=== PATIENT | male | born 1930 | race Caucasian/White ===

== ENCOUNTER 2017-09-26 10:52 | Outpatient (CLI) | payer MEDICARE ==
[2017-09-26 11:11] LABS: BASOPHILS % (AUTO) 0.9 %; EOSINOPHILS # (AUTO) 0.6 10^3/uL (0.0-0.7); LYMPHOCYTES % (AUTO) 30.3 %; MEAN CORPUSCULAR HEMOGLOBIN 33.3 pg (27.0-31.0); MEAN CORPUSCULAR HGB CONC 34.6 g/dL (32.0-36.0); MEAN CORPUSCULAR VOLUME 96.2 fL (80.0-94.0); MEAN PLATELET VOLUME 7.9 fL (7.4-11.4); MONOCYTES # (AUTO) 0.3 10^3/uL (0.0-1.0); MONOCYTES % (AUTO) 7.8 %; NEUTROPHILS # (AUTO) 1.5 10^3/uL (1.5-6.6); PLT - PLATELET COUNT 91 10^3/uL (130-450); RED BLOOD COUNT 3.29 10^6/uL (4.70-6.10); RED CELL DISTRIBUTION WIDTH 15.3 % (12.0-15.0); WHITE BLOOD COUNT 3.5 x10^3/uL (4.8-10.8)
[2017-09-26 11:30] LABS: ALBUMIN 3.6 g/dL (3.2-5.5); ALBUMIN/GLOBULIN RATIO 1.3 (1.0-2.2); ALKALINE PHOSPHATASE 47 IU/L (42-121); ALT ALANINE AMINOTRANSFERASE 24 IU/L (10-60); AST ASPARTATE AMINOTRANSFERASE 29 IU/L (10-42); BILIRUBIN,TOTAL 0.7 mg/dL (0.2-1.0); BUN - BLOOD UREA NITROGEN 25 mg/dL (6-20); CALCIUM 8.5 mg/dL (8.5-10.3); CARBON DIOXIDE - CO2 23 mmol/L (21-32); CHLORIDE 111 mmol/L (101-111); CHOL/HDL RATIO 2.8 (<5.0); CHOLESTEROL 140 mg/dL; CREATININE 1.5 mg/dL (0.6-1.2); GFR - MDRD 44 (>89); GLUCOSE 89 mg/dL (70-100); HDL CHOLESTEROL 50 mg/dL; LDL CHOLESTEROL,CALCULATED 72 mg/dL; LDL/HDL RATIO 1.4 (<3.6); SODIUM 140 mmol/L (135-145); TOTAL PROTEIN 6.4 g/dL (6.7-8.2); VLDL CHOLESTEROL 18 mg/dL
== END 2017-09-26 10:53 | disposition home or self-care (01) ==
LOC: LAB 10:52
PROVIDERS: ATTEND Internal Medicine
DX: C74.90 Malignant neoplasm of unspecified part of unspecified adrenal gland (principal); E78.5 Hyperlipidemia, unspecified; E03.9 Hypothyroidism, unspecified
CPT/HCPCS: 36415; 80053; 80061; 83721; 84443; 85025

== ENCOUNTER 2017-10-25 08:11 | Outpatient (CLI) | payer MEDICARE ==
[2017-10-25] MEDS ORDERED: IOPAMIDOL-300 50 ML VIAL ONE (08:20)
[2017-10-25] MEDS ORDERED: IOPAMIDOL-300 100 ML VIAL ONE (08:20)
--- NOTE | 2017-10-25 11:02 | CT Report ---
Reason: CARCINOMA OF ADRENAL GLAND Procedure Date: 10/25/2017 Accession Number: [id number] / [id number] Procedure: CT - Chest W/ CPT Code: FULL RESULT: EXAM: CT CHEST EXAM DATE: 10/25/2017 09:34 AM. CLINICAL HISTORY: CARCINOMA OF ADRENAL GLAND. COMPARISONS: None. TECHNIQUE: Routine helical CT imaging was performed through the chest. IV contrast: 100 cc Isovue-300. Reconstructions: Coronal and sagittal. Coronal MIP. In accordance with CT protocol optimization, one or more of the following dose reduction techniques were utilized for this exam: automated exposure control, adjustment of mA and/or KV based on patient size, or use of iterative reconstructive technique. FINDINGS: Lungs/Pleura: There is a calcified granuloma of the right lower lobe. No other pulmonary nodules or masses. Pulmonary vasculature is normal. No pericardial or pleural effusion. No pneumothorax. Mediastinum: Right hilar lymph node measures 1.4 cm in short axis. There is a low attenuating center, possibly necrotic lymph node. There are also calcified lymph nodes of the right hilum. Hiatal hernia is noted. Bones: No bone lesions. Visualized Abdomen: Several low attenuating foci in the liver measure up to 2.7 cm. They measure between 10 and 20 HU, favoring cysts. There is a small gallstone versus a mural calcification. The left adrenal gland appears mostly absent, likely postsurgical. The right kidney appears absent. Left renal cyst is noted. There is a small amount of perihepatic ascites IMPRESSION: There is an atypical appearing, possibly necrotic right hilar lymph node. 1.4 cm in short axis. No pulmonary metastases. Perihepatic ascites. Hiatal hernia. RADIA
--- NOTE | 2017-10-25 11:16 | CT Report ---
Reason: CARCINOMA OF ADRENAL GLAND Procedure Date: 10/25/2017 Accession Number: [id number] / [id number] Procedure: CT - Abdomen/Pelvis W/ CPT Code: FULL RESULT: EXAM: CT ABDOMEN AND PELVIS EXAM DATE: 10/25/2017 09:34 AM. CLINICAL HISTORY: CARCINOMA OF ADRENAL GLAND. COMPARISONS: None. TECHNIQUE: Routine helical CT imaging was performed through the abdomen and pelvis. IV contrast: 100 cc Isovue-300. Enteric contrast: Yes. Reconstructions: Coronal and sagittal. In accordance with CT protocol optimization, one or more of the following dose reduction techniques were utilized for this exam: automated exposure control, adjustment of mA and/or KV based on patient size, or use of iterative reconstructive technique. FINDINGS: Lung Bases: Unremarkable. Liver: Multiple low attenuating foci in the liver measure up to 2.8 cm. They measure between 10 and 20 HU, favoring cysts. Gallbladder/Bile Ducts: There is a small gallstone versus a mural calcification. Spleen: Normal. Pancreas: There is fluid and/or edema about the tail of the pancreas series 3 images 20-24. It is difficult to exclude a mass. Adrenal Glands: The left adrenal gland appears mostly absent, which may be postsurgical. The right adrenal gland appears normal. The right kidney is absent. There is a 2.0 cm left renal cyst. Other low attenuating foci in the left kidney are too small to characterize. Peritoneal Cavity/Bowel: There is a small amount of free fluid in the pelvis. There are colon diverticula without evidence of diverticulitis. Pelvic Organs: The prostate appears absent. Vasculature: No aneurysms or other significant abnormality. Bones: No bone lesions. There is pubic skin thickening, of uncertain significance. IMPRESSION: There is fluid and/or edema about the tail of the pancreas. There is also abdominal and pelvic ascites. Correlate clinically for pancreatitis. It is difficult to exclude a mass. Follow-up is recommended. Absent right kidney. Mostly absent left adrenal gland. There is pubic skin thickening of uncertain etiology or significance. Correlate clinically for a possible infectious process. RADIA
[2017-10-25] MEDS ORDERED: IOPAMIDOL-300 100 ML VIAL IVP ONE (13:01)
[2017-10-25] MEDS ORDERED: IOPAMIDOL-300 50 ML VIAL PO ONE (13:01)
== END 2017-10-25 08:12 | disposition home or self-care (01) ==
LOC: DI 08:11
PROVIDERS: ATTEND Internal Medicine
DX: C74.90 Malignant neoplasm of unspecified part of unspecified adrenal gland (principal); R18.8 Other ascites; Z90.5 Acquired absence of kidney; R23.4 Changes in skin texture
CPT/HCPCS: 71260; 74177; 93005; Q9967

== ENCOUNTER 2017-12-20 11:37 | Outpatient (CLI) | payer MEDICARE ==
[2017-12-20 17:22] LABS: HGB - HEMOGLOBIN 10.5 g/dL (14.0-18.0); MEAN CORPUSCULAR HEMOGLOBIN 33.3 pg (27.0-31.0); MEAN CORPUSCULAR HGB CONC 33.2 g/dL (32.0-36.0); MEAN CORPUSCULAR VOLUME 100.5 fL (80.0-94.0); MEAN PLATELET VOLUME 9.3 fL (7.4-11.4); RED BLOOD COUNT 3.15 10^6/uL (4.70-6.10); RED CELL DISTRIBUTION WIDTH 15.5 % (12.0-15.0); WHITE BLOOD COUNT 3.1 x10^3/uL (4.8-10.8)
== END 2017-12-20 11:38 | disposition home or self-care (01) ==
LOC: LAB.F 11:37
PROVIDERS: ATTEND Internal Medicine
DX: E03.9 Hypothyroidism, unspecified (principal)
CPT/HCPCS: 36415; 84443; 85027

== ENCOUNTER 2018-02-18 05:40 | Outpatient (CLI) | payer MEDICARE | END 2018-02-18 05:41 | disposition critical access hospital (66) | LOC: EMS 05:40 | PROVIDERS: ATTEND Surgery | DX: K92.0 Hematemesis (principal) | CPT/HCPCS: A0425; A0427 ==

== ENCOUNTER 2018-02-18 05:44 | Inpatient (IN) | payer MEDICARE ==
[2018-02-18] MEDS ORDERED: SODIUM CHLORIDE 0.9% 1,000 ML IV ONE ×2 (05:52)
[2018-02-18] MEDS ORDERED: PANTOPRAZOLE 40 MG VIAL IVP STA (05:52)
[2018-02-18] MEDS ORDERED: ONDANSETRON 4 MG/2 ML VIAL IVP STA (05:52)
--- NOTE | 2018-02-18 06:02 | ED Physician Documentation ---
PD HPI GI BLEED - Stated complaint Stated Complaint: GI BLEED - Chief complaint Chief Complaint: Abd Pain - History obtained from History obtained from: Patient, EMS - History of Present Illness Timing - onset: Last night Timing - duration: Days (1) Timing - details: Abrupt onset Pain level max: 0 Pain level now: 0 Associated symptoms: Coffee ground emesis, Hematemesis, Black/tarry stool, Diarrhea Contributing factors: No: Sick contact, Bad food, Travel, Recent antibiotics, Alcohol use, Aspirin use, NSAID use, Stress, Anticoagulated, Diabetes Improved by: Other (nothing) Worsened by: Other (nothing) Similar symptoms before: Diagnosis (gastric ulcer) Recently seen: Not recently seen - Additional information Additional information: 87-year-old gentleman presents to the emergency department with vomiting last night that was "like coffee grounds". He states that he has continued to vomit throughout the night and has now had diarrhea that is dark. The vomit now has bright red blood in it. No history of varices. Does have a history of gastric ulcers in the past, but states his last was approximately 15 years ago and was not bleeding at that time. States has had normal colonoscopies in the past. No recent alcohol use. No recent antibiotics. Patient states he ate a taco salad last night Review of Systems Ten Systems: 10 systems reviewed and negative Constitutional: denies: Fever, Chills Respiratory: denies: Cough GI: denies: Abdominal Pain Skin: denies: Rash Musculoskeletal: denies: Neck pain, Back pain Neurologic: denies: Headache PD PAST MEDICAL HISTORY - Past Medical History Cardiovascular: Coronary artery disease, Other Respiratory: Other Neuro: None Endocrine/Autoimmune: None GI: Other : Other HEENT: Other Psych: Other Musculoskeletal: Other Derm: None - Present Medications Home Medications: Ambulatory Orders Medication Instructions Recorded Confirmed Aspirin 1 tab ORAL DAILY 10/17/17 01/09/18 Levothyroxine [Synthroid] 100 mcg ORAL DAILY 10/17/17 01/09/18 Lovastatin 10 mg ORAL DAILY 10/17/17 01/09/18 Pazopanib HCl [Votrient] 0.5 tab ORAL DAILY 10/17/17 01/09/18 amLODIPine [Norvasc] 10 mg ORAL DAILY 10/17/17 01/09/18 hydrALAZINE [Apresoline] 25 mg ORAL DAILY 10/17/17 01/09/18 - Allergies Allergies/Adverse Reactions: Allergies Allergy/AdvReac Type Severity Reaction Status Date / Time No Known Drug Allergies Allergy Verified 10/17/17 09:13 PD ED PE NORMAL - Vitals Vital signs reviewed: Yes - General General: Alert and oriented X 3, No acute distress - HEENT HEENT: Moist mucous membranes - Neck Neck: Supple, no meningeal sign - Cardiac Cardiac: RRR, Strong equal pulses - Respiratory Respiratory: No respiratory distress, Clear bilaterally - Abdomen Abdomen: Soft, Non tender, Non distended - Rectal Rectal: Other (dark stool, + hemoccult) - Derm Derm: Warm and dry, No rash - Extremities Extremities: No edema, No calf tenderness / cord - Neuro Neuro: Alert and oriented X 3 - Psych Psych: Normal mood, Normal affect Results - Vitals Vitals: Vital Signs - 24 hr 02/18/18 02/18/18 05:49 06:15 Temperature 36 C L Heart Rate 67 65 Respiratory 18 16 Rate Blood Pressure 125/99 H 148/70 H O2 Saturation 99 96 Oxygen O2 Source Room air - Labs Labs: Laboratory Tests 02/18/18 02/18/18 02/18/18 06:03 06:03 06:03 WBC 6.3 RBC 2.42 L Hgb 8.2 L Hct 25.0 L MCV 103.3 H MCH 34.0 H MCHC 32.9 RDW 15.4 H Plt Count 110 L MPV 9.3 Neut # (Auto) 3.9 Lymph # (Auto) 1.5 [place] # (Auto) 0.4 Eos # (Auto) 0.5 Baso # (Auto) 0.0 Absolute Nucleated RBC 0.00 Nucleated RBC % 0.0 PT 11.7 INR 1.0 APTT 28.9 Sodium 140 Potassium 4.8 Chloride 112 H Carbon Dioxide 20 L Anion Gap 8.0 BUN 47 H Creatinine 1.9 H Estimated GFR (MDRD) 34 L Glucose 132 H Calcium 8.5 Total Bilirubin 0.5 AST 41 ALT 43 Alkaline Phosphatase 41 L Total Protein 5.4 L Albumin 2.8 L Globulin 2.6 Albumin/Globulin Ratio 1.1 Lipase 33 PD MEDICAL DECISION MAKING - ED course Complexity details: reviewed results, re-evaluated patient, considered differential, d/w patient, d/w decorator consultant ED course: 87-year-old male who presents to the emergency department with coffee-ground emesis last night that is turned into dark stools with diarrhea this morning. His hemoglobin is dropped from 10 down to 8. Vital signs are stable. Given IV fluids, Protonix and Zofran. Discussed the case with Dr. Mcgowan, general surgery on-call who will consult this morning. Also discussed with Dr. Roa, hospitalist who accepts. This document was made in part using voice recognition software. While efforts are made to proofread this document, sound alike and grammatical errors may occur. Departure - Departure Disposition: [facility] DC/Xfer Clinical Impression: Upper GI bleed Anemia Qualifiers: Anemia type: unspecified type Qualified Code(s): D64.9 - Anemia, unspecified Condition: Stable
[2018-02-18 06:16] LABS: BASOPHILS % (AUTO) 0.6 %; EOSINOPHILS # (AUTO) 0.5 10^3/uL (0.0-0.7); EOSINOPHILS % (AUTO) 7.6 %; HGB - HEMOGLOBIN 8.2 g/dL (14.0-18.0); LYMPHOCYTES # (AUTO) 1.5 10^3/uL (1.5-3.5); LYMPHOCYTES % (AUTO) 23.3 %; MEAN CORPUSCULAR HGB CONC 32.9 g/dL (32.0-36.0); MEAN CORPUSCULAR VOLUME 103.3 fL (80.0-94.0); MEAN PLATELET VOLUME 9.3 fL (7.4-11.4); MONOCYTES # (AUTO) 0.4 10^3/uL (0.0-1.0); MONOCYTES % (AUTO) 6.5 %; NEUTROPHILS # (AUTO) 3.9 10^3/uL (1.5-6.6); PLT - PLATELET COUNT 110 10^3/uL (130-450); RED BLOOD COUNT 2.42 10^6/uL (4.70-6.10); RED CELL DISTRIBUTION WIDTH 15.4 % (12.0-15.0); WHITE BLOOD COUNT 6.3 x10^3/uL (4.8-10.8)
[2018-02-18 06:22] LABS: PT - PROTHROMBIN TIME 11.7 secs (9.9-12.6)
[2018-02-18 06:26] LABS: ALBUMIN 2.8 g/dL (3.2-5.5); ALBUMIN/GLOBULIN RATIO 1.1 (1.0-2.2); BILIRUBIN,TOTAL 0.5 mg/dL (0.2-1.0); CALCIUM 8.5 mg/dL (8.5-10.3); CREATININE 1.9 mg/dL (0.6-1.2); TOTAL PROTEIN 5.4 g/dL (6.7-8.2)
[2018-02-18] MEDS ORDERED: hydrALAZINE INJ 20 MG/ML VIAL IVP PRN (06:38)
[2018-02-18] MEDS ORDERED: PROCHLORPERAZINE INJ 10 MG in SODIUM CHLORIDE 0.9% 50 ML IV PRN (06:38)
[2018-02-18] MEDS ORDERED: ONDANSETRON 4 MG/2 ML VIAL IVP PRN (06:39)
--- NOTE | 2018-02-18 06:49 | HISTORY & PHYSICAL EXAMINATION ---
Chief Complaint - Chief Complaint Chief Complaint: coffee-ground emesis History of Present Illness - Admitted From Admitted From:: ED - History Obtained From Records Reviewed: yes History obtained from: patient Exam Limitations: none - History of Present Illness HPI Comment/Other: 87-year-old gentleman presents to the emergency department with vomiting last night that was "like coffee grounds". He states that he has continued to vomit throughout the night and has now had diarrhea that is dark. The vomit now has bright red blood in it. No history of varices. NO ETOH abuse however does take oral chemotx (pazopanib) for his stage 4 renal cell carcinoma who he sees Yessenia Patterson primary Hem/onc, with last note on 11/02/17 by PROGRESSIVE ASSEMBLER AND FITTER stating due to his intolerance to VOTRIENT he may need to start nivolumab infusions every 2 weeks. Does have a history of gastric ulcers in the past with and upper endoscopy about 4-5 years ago, but states his last colonoscopy was approximately 15 years ago and was not bleeding at that time. No recent alcohol use. No recent antibiotics. Patient states he ate a taco salad last night. On exam patient had no overt abd pain, H/H showed a drop from previous 10 to a 8.2 g/dl today, cr 1.9 with a baseline cr at 1.5 on [employer], mild metabolic acidosis with a co2 20, and a thrombocytopenia plt 110. General surgery has been consulted for possible endoscopy and was started on high dose IV PPI. History - Past Medical History Cardiovascular: reports: Coronary artery disease, Other Respiratory: reports: Other Neuro: reports: None Endocrine/Autoimmune: reports: None GI: reports: Other : reports: Other HEENT: reports: Other Psych: reports: Other Musculoskeletal: reports: Other Derm: reports: None MRSA Hx?: No Meds/Allgy - Home Medications Home Medications: Ambulatory Orders Medication Instructions Recorded Confirmed Aspirin 1 tab ORAL DAILY 10/17/17 01/09/18 Levothyroxine [Synthroid] 100 mcg ORAL DAILY 10/17/17 01/09/18 Lovastatin 10 mg ORAL DAILY 10/17/17 01/09/18 Pazopanib HCl [Votrient] 1 tab ORAL DAILY 10/17/17 02/18/18 amLODIPine [Norvasc] 10 mg ORAL DAILY 10/17/17 01/09/18 hydrALAZINE [Apresoline] 25 mg ORAL DAILY 10/17/17 01/09/18 - Allergies Allergies/Adverse Reactions: Allergies Allergy/AdvReac Type Severity Reaction Status Date / Time No Known Drug Allergies Allergy Verified 10/17/17 09:13 Review of Systems - Constitutional Constitutional: reports: Weakness - Ears, Nose & Throat Ears, Nose & Throat: denies: Nosebleeds - Cardiovascular Cariovascular: denies: Irregular heart rate, Palpitations, Chest pain - Respiratory Respiratory: denies: Cough, Sputum production, Wheezing, Hemoptysis - Gastrointestinal Gastrointestinal: reports: Diarrhea, Change in bowel habits, Bloody stools, Nausea, Vomiting, Bruce blood emesis, Coffee grounds emesis, Poor appetite. denies: Abdominal pain, Abdominal distention, Constipation, Reflux/heartburn - Genitourinary Genitourinary: denies: Dysuria, Frequency, Urgency, Hematuria - Musculoskeletal Musculoskeletal: denies: Muscle pain, Back pain, Muscle aches, Stiffness - Integumentary Integumentary: denies: Rash - Neurological Neurological: denies: Dizziness, Numbness, Abnormal gait, Seizures, Slurred speech - Psychiatric Psychiatric: denies: Depression, Anxiety, Hallucinations - Endocrine Endocrine: denies: Polyuria, Polydypsia - Hematologic/Lymphatic Hematologic/Lymphatic: reports: Anemia Prior Level of Functionality: independent and ambulatory Exam - Vital Signs Vital Signs: Vital Signs x48h Temp Pulse Resp BP Pulse Ox 02/18/18 06:15 65 16 148/70 H 96 02/18/18 05:49 36 C L 67 18 125/99 H 99 VSS, afebrile BP 148/70 - Physical Exam General Appearance: positive: No acute distress Eyes Bilateral: positive: Normal inspection, PERRL, EOMI, No scleral icterus ENT: positive: Pharynx nml Neck: positive: Nml inspection, Thyroid nml, No JVD, Trachea midline. negative: Thyromegaly, Carotid bruit Respiratory: positive: Chest non-tender, No respiratory distress, Breath sounds nml Cardiovascular: positive: Regular rate & rhythm, No murmur, No gallop, Irregularly irregular Peripheral Pulses: positive: 2+ Abdomen: positive: No organomegaly, Nml bowel sounds, No distention, Tenderness (Epigastric tenderness). negative: Hepatomegaly, Splenomegaly Back: positive: Nml inspection Extremities: positive: Non-tender, Full ROM, Nml appearance, Pedal edema Neurologic/Psychiatric: positive: Oriented x3, CN's nml (2-12) Conclusion/Plan - Problem List (1) Acute blood loss anemia Conclusion/Plan: Will type and CM 2 units and transfuse with threshold<8 g/dl due to hx CAD. General surgery consulted with Dr. Mcgowan for possible endoscopy. IV protonix, bowel rest, IVF's, NPO for now. FOBT, Iron studies to follow. (2) Thrombocytopenia Conclusion/Plan: Bone marrow suppression from oral chemotx, will hold for now once H/H stabilizes and symptoms resolve. Obtain coag panel. (3) Hx of gastric ulcer Conclusion/Plan: Upper endoscopy approx 4-5 years ago show a gastric ulcer, will place on IV PPI, NPO, Gen surgery for upper endoscopy. 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 Qualifiers: Laterality: right Qualified Code(s): C64.1 - Malignant neoplasm of right kidney, except renal pelvis - Lab Results Lab results reviewed: Yes Fish Bones: 02/18/18 06:03 02/18/18 06:03 Core Measures - Anticipated LOS I expect patient to be DC'd or transferred within 96 hours.: No - DVT/VTE - Prophylaxis VTE/DVT Device ordered at admit?: Yes VTE/DVT Prophylaxis med ordered at admit?: No Not Ordered - Medical Reason: Contraindicated (GIB)
[2018-02-18] MEDS ORDERED: PANTOPRAZOLE 40 MG VIAL IVP SCH (07:00)
[2018-02-18] MEDS ORDERED: DEXTROSE 5%-0.9% NACL 1,000 ML IV SCH (07:00)
[2018-02-18 07:11] LABS: % IRON SATURATION 38 % (20-50); IRON 89 ug/dL (45-182); TOTAL IRON BINDING CAPACITY 234 ug/dL (250-450); TRANSFERRIN 167 mg/dL (180-329)
[2018-02-18] MEDS ORDERED: PROCHLORPERAZINE 10 MG/2 ML VIAL IVP PRN (07:43)
[2018-02-18] MEDS: SODIUM CHLORIDE FLUSH 0.9% 10 ML SYRINGE IVP SCH ×3 (08:30→23:38)
--- NOTE | 2018-02-18 09:32 | CONSULTATION NOTE ---
Referring Provider Name of Referring Provider:: Dr. Roa Consult Date: 02/18/18 Chief Complaint - Chief Complaint Chief Complaint: GI bleed History of Present Illness - Admitted From Admitted From:: ER - History Obtained From Records Reviewed: yes History obtained from: pt, records Exam Limitations: none - History of Present Illness HPI Comment/Other: 87 yo male with abrupt onset at 0200 today of repeated N/V of coffeeground emesis and loose, melenic stools, prompting ER evaluation this am and admission. He noted a dark stool yesterday but ow his bowel function has been nl. He denies abdominal pain, fever, chills, syncope, dizziness, hematochezia, previous similar episodes. He has a remote hx of PUD diagnosed in the with EGD during evaluation of epigastric pain. He had been taking NSAIDs at that time. His current NSAID use is 81 mg aspirin daily; no alcohol or tobacco. For the past year or so he has been taking pazopanib for Stage 4 renal cell ca, which has been associated with anorexia and a 30# wt loss per patient. He is s/p right radical nephrectomy, and subsequent right adrenalectomy for metastatic disease. He has known pulmonary mets and has been followed by the [facility] clinic since he moved to [facility] last summer. He reports hx multiple colonoscopies, and a hx of colon polyps, with most recent colonoscopy being approx 7 yrs ago and favorable per pt. Since admission and treatment with IV PPI therapy he has had no further N/V or bms. 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) Neuro: reports: None Endocrine/Autoimmune: reports: None GI: reports: Ulcers ( assoc with NSAIDs), Hiatal hernia, Colon polyps : reports: Renal insuffiency (s/p nephrectomy), Other (prostate cancer, s/p prostatectomy) Musculoskeletal: reports: Osteoarthritis Derm: reports: None MRSA Hx?: No - Past Surgical History General: reports: Appendectomy, Colonoscopy, EGD, Other (BIH repairs) Ortho: reports: Spine surgery, Other (right shoulder surgery) /ENVIRONMENTAL CONSULTANT: reports: Other (prostatectomy, vasectomy, right nephrectomy, left adrenalectomy) - Family & Social History Living arrangement: At home - Substance History Use: Uses substance without health or social issues: NONE Meds/Allgy - Home Medications Home Medications: Ambulatory Orders Medication Instructions Recorded Confirmed Aspirin 1 tab ORAL DAILY 10/17/17 01/09/18 Levothyroxine [Synthroid] 100 mcg ORAL DAILY 10/17/17 01/09/18 Lovastatin 10 mg ORAL DAILY 10/17/17 01/09/18 Pazopanib HCl [Votrient] 1 tab ORAL DAILY 10/17/17 02/18/18 amLODIPine [Norvasc] 10 mg ORAL DAILY 10/17/17 01/09/18 hydrALAZINE [Apresoline] 25 mg ORAL DAILY 10/17/17 01/09/18 - Allergies Allergies/Adverse Reactions: Allergies Allergy/AdvReac Type Severity Reaction Status Date / Time No Known Drug Allergies Allergy Verified 10/17/17 09:13 Review of Systems - Constitutional Constitutional: reports: Poor appetite, Weight loss. denies: Fever, Chills - Cardiovascular Cariovascular: denies: Irregular heart rate, Palpitations, Chest pain, Lightheadedness, Syncope - Respiratory Respiratory: denies: Cough, Sputum production, Wheezing - Gastrointestinal Gastrointestinal: reports: Diarrhea, Change in bowel habits, Black stools, Nausea, Vomiting, Coffee grounds emesis, Poor appetite. denies: Abdominal pain, Abdominal distention, Constipation, Reflux/heartburn - Hematologic/Lymphatic Hematologic/Lymphatic: denies: Bruising, Blood clots, Bleeding tendencies - All Other Systems All Other Systems: reports: Reviewed and negative Exam - Vital Signs Reviewed Vital Signs: Yes Vital Signs: Vital Signs x48h Temp Pulse Pulse Resp BP BP Pulse Ox 02/18/18 08:46 36.7 C 73 16 95 02/18/18 08:20 36.7 C 73 16 108/60 95 02/18/18 07:04 71 18 145/56 H 98 02/18/18 06:58 73 18 146/67 H 96 02/18/18 06:15 65 16 148/70 H 96 02/18/18 05:49 36 C L 67 18 125/99 H 99 - Physical Exam General Appearance: positive: No acute distress, Alert Eyes Bilateral: positive: Conjunctivae nml, No scleral icterus ENT: positive: ENT inspection nml, Pharynx nml, No signs of dehydration Neck: positive: Nml inspection, No JVD. negative: Thyromegaly, Lymphadenopathy (R), Lymphadenopathy (L) Respiratory: positive: Chest non-tender, No respiratory distress, Breath sounds nml. negative: Wheezes, Rales Cardiovascular: positive: Regular rate & rhythm, No murmur, No gallop Abdomen: positive: Non-tender, No organomegaly, Nml bowel sounds, No distention. negative: Hepatomegaly, Splenomegaly, Mass Skin: positive: Color nml, Warm, Dry. negative: Cyanosis Extremities: positive: Non-tender. negative: Calf tenderness Neurologic/Psychiatric: positive: Oriented x3 Conclusion/Plan - Diagnosis Diagnosis: UGI bleed in 87 yo male on chronic low dose NSAID therapy and ongoing chemotherapy for Stage 4 renal cell ca. DDX includes PUD, gastritis, H. pylori, atypical GERD, UGI neoplasm (primary or metastatic), varices (doubt). Currently hemodynamically stable with no signs of ongoing active bleeding. - Plan Plan: Agree with present management of NPO, IVF, PPI therapy, holding NSAIDS and chemotherapy. I advised him to undergo EGD with possible biopsy or therapy later today. PAR conference was held and consent obtained. Thanks, - Lab Results Lab results reviewed: Yes Fish Bones: 02/18/18 06:03 02/18/18 06:03
--- NOTE | 2018-02-18 10:02 | ANESTHESIA ---
Pre-Anesthesia VS, & Labs - Diagnosis GI bleed - Procedure EGD Vital Signs: Temp Pulse Resp BP Pulse Ox 36.7 C 73 16 108/60 95 02/18/18 08:46 02/18/18 08:46 02/18/18 08:46 02/18/18 08:20 02/18/18 08:46 Height 5 ft 11 in Weight (kg) 80.5 kg Body Mass Index 24.7 - NPO >8 hours - Lab Results Current Lab Results: Laboratory Tests 02/18/18 06:03: Iron 89, TIBC 234 L, % Saturation 38, Transferrin 167 L 02/18/18 06:03: Blood Type O POSITIVE, Antibody Screen NEGATIVE 02/18/18 06:03: Sodium 140, Potassium 4.8, Chloride 112 H, Carbon Dioxide 20 L, Anion Gap 8.0, BUN 47 H, Creatinine 1.9 H, Estimated GFR (MDRD) 34 L, Glucose 132 H, Calcium 8.5, Total Bilirubin 0.5, AST 41, ALT 43, Alkaline Phosphatase 41 L, Total Protein 5.4 L, Albumin 2.8 L, Globulin 2.6, Albumin/Globulin Ratio 1.1, Lipase 33 02/18/18 06:03: PT 11.7, INR 1.0, APTT 28.9 02/18/18 06:03: WBC 6.3, RBC 2.42 L, Hgb 8.2 L, Hct 25.0 L, MCV 103.3 H, MCH 34.0 H, MCHC 32.9, RDW 15.4 H, Plt Count 110 L, MPV 9.3, Neut # (Auto) 3.9, Lymph # (Auto) 1.5, [place] # (Auto) 0.4, Eos # (Auto) 0.5, Baso # (Auto) 0.0, Absolute Nucleated RBC 0.00, Nucleated RBC % 0.0 Fish Bones: 02/18/18 13:33 02/18/18 06:03 Home Medications and Allergies Active Medications Hydralazine HCl (Apresoline Inj) 10 mg IVP Q4HR PRN PRN Reason: SBP>160 Sodium Chloride (Normal Saline 0.9%) 1,000 mls @ 150 mls/hr IV .[id number] ONE Stop: 02/18/18 12:31 Last Admin: 02/18/18 07:18 Dose: 150 mls/hr Dextrose/Sodium Chloride (D5ns) 1,000 mls @ 125 mls/hr IV .Q8H [facility] Last Admin: 02/18/18 08:29 Dose: 125 mls/hr Ondansetron HCl (Zofran Inj) 4 mg IVP Q4HR PRN PRN Reason: Nausea / Vomiting Pantoprazole Sodium (Protonix) 40 mg IVP BIDAC [facility] Polyethylene Glycol (Miralax) 17 gm PO DAILY [facility] Prochlorperazine Edisylate (Compazine Inj) 10 mg IVP Q4HR PRN PRN Reason: Nausea / Vomiting Sodium Chloride (Normal Saline Flush 0.9%) 10 ml IVP PRN PRN PRN Reason: NEEDED PER PROVIDER ORDERS Sodium Chloride (Normal Saline Flush 0.9%) 10 ml IVP 0100,0900,1700 [facility] Last Admin: 02/18/18 08:30 Dose: 10 ml Aspirin 1 tab ORAL DAILY 10/17/17 Levothyroxine [Synthroid] 100 mcg ORAL DAILY 10/17/17 Lovastatin 10 mg ORAL DAILY 10/17/17 Pazopanib HCl [Votrient] 1 tab ORAL DAILY 10/17/17 amLODIPine [Norvasc] 10 mg ORAL DAILY 10/17/17 hydrALAZINE [Apresoline] 25 mg ORAL DAILY 10/17/17 Allergies/Adverse Reactions: Allergies Allergy/AdvReac Type Severity Reaction Status Date / Time No Known Drug Allergies Allergy Verified 10/17/17 09:13 Anes History & Medical History - Anesthetic History Anesthesia Complications: reports: No previous complications Family history of Anesthesia Complications: Denies Family history of Malignant Hyperthermia: Denies - Medical History Cardiovascular: reports: Coronary artery disease, Other Pulmonary: reports: None (Right nephrectomy for cancer), Other Gastrointestinal: reports: Ulcers (1980s assoc with NSAIDs), Hiatal hernia, Colon polyps Urinary: reports: Renal insuffiency (s/p nephrectomy), Other (prostate cancer) Neuro: reports: None Musculoskeletal: reports: Other Endocrine/Autoimmune: reports: None Blood Disorders: reports: Anemia Skin: reports: None Smoking Status: Former smoker Psychosocial: reports: No issues indicated - Surgical History General: Appendectomy, Colonoscopy, EGD, Other (BIH repairs) Urologic: Prostatic surgery Gynecologic: Other (TURP, vasectomy) Orthopedic: Spine surgery, Other (right shoulder surgery) Exam General: Alert, Oriented x3 Dental: Dentures full Upper, Dentures full Lower Mouth Opening: Greater than 4 Fingerbreadths Neck Mobility: Normal Mallampati classification: I Thyromental Distance: greater than 6 cm Respiratory: Lungs clear Cardiovascular: Regular rate Neurological: Normal speech Mental/Cognitive Status: Alert/Oriented X3 Cognitive Status: Within normal limits Plan Anesthesia Type: MAC Consent for Procedure(s) Verified and Reviewed: Yes Code Status: Attempt Resuscitation ASA classification: 3-Severe systemic disease Is this case an emergency?: Yes (Check hemoglobin/hematocrit)
[2018-02-18] MEDS: POLYETHYLENE GLYCOL 3350 17 GM PACKET PO SCH (11:28)
[2018-02-18 13:44] LABS: BASOPHILS % (AUTO) 0.3 %; EOSINOPHILS # (AUTO) 0.1 10^3/uL (0.0-0.7); EOSINOPHILS % (AUTO) 2.2 %; LYMPHOCYTES # (AUTO) 0.6 10^3/uL (1.5-3.5); MEAN CORPUSCULAR HEMOGLOBIN 33.4 pg (27.0-31.0); MEAN CORPUSCULAR HGB CONC 33.5 g/dL (32.0-36.0); MEAN CORPUSCULAR VOLUME 99.9 fL (80.0-94.0); MEAN PLATELET VOLUME 8.9 fL (7.4-11.4); MONOCYTES # (AUTO) 0.4 10^3/uL (0.0-1.0); MONOCYTES % (AUTO) 9.4 %; NEUTROPHILS # (AUTO) 2.7 10^3/uL (1.5-6.6); NEUTROPHILS % (AUTO) 72.1 %; PLT - PLATELET COUNT 82 10^3/uL (130-450); RED BLOOD COUNT 2.01 10^6/uL (4.70-6.10); RED CELL DISTRIBUTION WIDTH 15.3 % (12.0-15.0); WHITE BLOOD COUNT 3.8 x10^3/uL (4.8-10.8)
[2018-02-18 13:48] LABS: HGB - HEMOGLOBIN 6.7 g/dL (14.0-18.0)
[2018-02-18] MEDS ORDERED: LIDO GARGLE 30 ML BOTTLE ONE (14:06)
[2018-02-18] MEDS ORDERED: LACTATED RINGERS 1,000 ML IV ONE ×2 (15:19→15:29)
[2018-02-18] MEDS ORDERED: LIDO GARGLE 30 ML BOTTLE PO ONE (15:28)
[2018-02-18] MEDS ORDERED: LIDOCAINE-MPF 2% 5 ML VIAL IM ONE (15:40)
[2018-02-18] MEDS ORDERED: PROPOFOL 200 MG/20 ML VIAL IVP ONE (15:40)
[2018-02-18] MEDS ORDERED: SODIUM CHLORIDE 0.9% 500 ML IV ONE (16:42)
[2018-02-18] MEDS: SODIUM CHLORIDE FLUSH 0.9% 10 ML SYRINGE IVP PRN (17:10)
[2018-02-18] MEDS: PANTOPRAZOLE 40 MG VIAL IVP SCH (17:12)
--- NOTE | 2018-02-18 19:03 | PROVIDER PROGRESS NOTE ---
Subjective - Prog Note Date Prog Note Date: 02/18/18 Prog Note Time: 19:03 - Subjective Pt reports feeling: Improved Current Medications - Current Medications Current Medications: Active Medications Hydralazine HCl (Apresoline Inj) 10 mg IVP Q4HR PRN PRN Reason: SBP>160 Levothyroxine Sodium (Synthroid) 100 mcg PO QDAC [facility] Ondansetron HCl (Zofran Inj) 4 mg IVP Q4HR PRN PRN Reason: Nausea / Vomiting Pantoprazole Sodium (Protonix) 40 mg IVP BIDAC [facility] Last Admin: 02/18/18 17:12 Dose: 40 mg Polyethylene Glycol (Miralax) 17 gm PO DAILY [facility] Last Admin: 02/18/18 11:28 Dose: Not Given Prochlorperazine Edisylate (Compazine Inj) 10 mg IVP Q4HR PRN PRN Reason: Nausea / Vomiting Sodium Chloride (Normal Saline Flush 0.9%) 10 ml IVP PRN PRN PRN Reason: NEEDED PER PROVIDER ORDERS Last Admin: 02/18/18 17:10 Dose: 10 ml Sodium Chloride (Normal Saline Flush 0.9%) 10 ml IVP 0100,0900,1700 [facility] Last Admin: 02/18/18 17:10 Dose: 10 ml Aspirin 81 mg ORAL DAILY 10/17/17 Levothyroxine [Synthroid] 100 mcg PO QDAC 10/17/17 Lovastatin 10 mg PO DAILY 10/17/17 Pazopanib HCl [Votrient] 200 mg PO DAILY 10/17/17 amLODIPine [Norvasc] 10 mg PO DAILY 10/17/17 hydrALAZINE [Apresoline] 25 mg PO DAILY 10/17/17 Objective - Vital Signs/Intake & Output Reviewed Vital Signs: Yes Vital Signs: Vital Signs x48h Temp Pulse Pulse Resp BP BP Pulse Ox 02/18/18 17:30 36.7 C 51 L 16 129/48 L 02/18/18 17:02 36.5 C 51 L 16 134/50 H 02/18/18 16:49 36.6 C 46 L 16 127/45 L 02/18/18 16:25 36.9 C 48 L 16 125/47 L 100 02/18/18 16:13 37.1 C 50 L 16 127/52 L 100 02/18/18 16:08 37.1 C 69 16 115/48 L 100 02/18/18 16:00 37.1 C 55 L 16 125/52 L 100 02/18/18 15:55 37.4 C 54 L 16 109/51 L 100 02/18/18 15:50 37.4 C 51 L 17 107/49 L 98 02/18/18 15:06 36.8 C 56 L 16 134/52 H 02/18/18 14:53 36.9 C 68 16 141/63 H Intake & Output: Intake & Output 02/15/18 02/16/18 02/17/18 02/18/18 23:59 23:59 23:59 23:59 Intake Total 2750 Balance 2750 - Objective General Appearance: positive: No acute distress, Alert, Other (Anxious gentleman with a very nervous affect) Eyes Bilateral: positive: PERRL, EOMI ENT: positive: Pharynx nml Neck: positive: No JVD. negative: Stiff neck Respiratory: positive: Chest non-tender. negative: Wheezes, Rales, Rhonchi Cardiovascular: positive: Regular rate & rhythm. negative: Gallop/S4, Friction rub Abdomen: positive: Non-tender, No organomegaly, Nml bowel sounds, No distention Skin: positive: Warm, Dry Extremities: positive: Non-tender, No pedal edema Neurologic/Psychiatric: positive: Oriented x3, CN's nml (2-12), Motor nml - Lab Results Fish Bones: 02/18/18 13:33 02/18/18 06:03 Other Labs: Lab Results x24hrs 02/18/18 02/18/18 02/18/18 Range/Units 13:33 13:33 06:03 WBC 3.8 L (4.8-10.8) x10^3/uL RBC 2.01 L (4.70-6.10) 10^6/uL Hgb 6.7 L* (14.0-18.0) g/dL Hct 20.1 L (42.0-52.0) % MCV 99.9 H (80.0-94.0) fL MCH 33.4 H (27.0-31.0) pg MCHC 33.5 (32.0-36.0) g/dL RDW 15.3 H (12.0-15.0) % Plt Count 82 L (130-450) 10^3/uL MPV 8.9 (7.4-11.4) fL Neut # (Auto) 2.7 (1.5-6.6) 10^3/uL Lymph # (Auto) 0.6 L (1.5-3.5) 10^3/uL Iron # (Auto) 0.4 (0.0-1.0) 10^3/uL Eos # (Auto) 0.1 (0.0-0.7) 10^3/uL Baso # (Auto) 0.0 (0.0-0.1) 10^3/uL Absolute Nucleated RBC 0.00 x10^3/uL Nucleated RBC % 0.0 /100WBC PT (9.9-12.6) secs INR (0.8-1.2) APTT (24.9-33.3) secs Sodium (135-145) mmol/L Potassium (3.5-5.0) mmol/L Chloride (101-111) mmol/L Carbon Dioxide (21-32) mmol/L Anion Gap (6-13) BUN (6-20) mg/dL Creatinine (0.6-1.2) mg/dL Estimated GFR (MDRD) (>89) Glucose (70-100) mg/dL Calcium (8.5-10.3) mg/dL Iron (45-182) ug/dL TIBC (250-450) ug/dL % Saturation (20-50) % Transferrin (180-329) mg/dL Total Bilirubin (0.2-1.0) mg/dL AST (10-42) IU/L ALT (10-60) IU/L Alkaline Phosphatase (42-121) IU/L Total Protein (6.7-8.2) g/dL Albumin (3.2-5.5) g/dL Globulin (2.1-4.2) g/dL Albumin/Globulin Ratio (1.0-2.2) Lipase (22-51) U/L Blood Type Cancelled Blood Type Recheck O POSITIVE Antibody Screen Cancelled Crossmatch IS Only See Detail 02/18/18 02/18/18 02/18/18 Range/Units 06:03 06:03 06:03 WBC (4.8-10.8) x10^3/uL RBC (4.70-6.10) 10^6/uL Hgb (14.0-18.0) g/dL Hct (42.0-52.0) % MCV (80.0-94.0) fL MCH (27.0-31.0) pg MCHC (32.0-36.0) g/dL RDW (12.0-15.0) % Plt Count (130-450) 10^3/uL MPV (7.4-11.4) fL Neut # (Auto) (1.5-6.6) 10^3/uL Lymph # (Auto) (1.5-3.5) 10^3/uL Iron # (Auto) (0.0-1.0) 10^3/uL Eos # (Auto) (0.0-0.7) 10^3/uL Baso # (Auto) (0.0-0.1) 10^3/uL Absolute Nucleated RBC x10^3/uL Nucleated RBC % /100WBC PT (9.9-12.6) secs INR (0.8-1.2) APTT (24.9-33.3) secs Sodium 140 (135-145) mmol/L Potassium 4.8 (3.5-5.0) mmol/L Chloride 112 H (101-111) mmol/L Carbon Dioxide 20 L (21-32) mmol/L Anion Gap 8.0 (6-13) BUN 47 H (6-20) mg/dL Creatinine 1.9 H (0.6-1.2) mg/dL Estimated GFR (MDRD) 34 L (>89) Glucose 132 H (70-100) mg/dL Calcium 8.5 (8.5-10.3) mg/dL Iron 89 (45-182) ug/dL TIBC 234 L (250-450) ug/dL % Saturation 38 (20-50) % Transferrin 167 L (180-329) mg/dL Total Bilirubin 0.5 (0.2-1.0) mg/dL AST 41 (10-42) IU/L ALT 43 (10-60) IU/L Alkaline Phosphatase 41 L (42-121) IU/L Total Protein 5.4 L (6.7-8.2) g/dL Albumin 2.8 L (3.2-5.5) g/dL Globulin 2.6 (2.1-4.2) g/dL Albumin/Globulin Ratio 1.1 (1.0-2.2) Lipase 33 (22-51) U/L Blood Type O POSITIVE Blood Type Recheck Antibody Screen NEGATIVE Crossmatch IS Only 02/18/18 02/18/18 Range/Units 06:03 06:03 WBC 6.3 (4.8-10.8) x10^3/uL RBC 2.42 L (4.70-6.10) 10^6/uL Hgb 8.2 L (14.0-18.0) g/dL Hct 25.0 L (42.0-52.0) % MCV 103.3 H (80.0-94.0) fL MCH 34.0 H (27.0-31.0) pg MCHC 32.9 (32.0-36.0) g/dL RDW 15.4 H (12.0-15.0) % Plt Count 110 L (130-450) 10^3/uL MPV 9.3 (7.4-11.4) fL Neut # (Auto) 3.9 (1.5-6.6) 10^3/uL Lymph # (Auto) 1.5 (1.5-3.5) 10^3/uL Iron # (Auto) 0.4 (0.0-1.0) 10^3/uL Eos # (Auto) 0.5 (0.0-0.7) 10^3/uL Baso # (Auto) 0.0 (0.0-0.1) 10^3/uL Absolute Nucleated RBC 0.00 x10^3/uL Nucleated RBC % 0.0 /100WBC PT 11.7 (9.9-12.6) secs INR 1.0 (0.8-1.2) APTT 28.9 (24.9-33.3) secs Sodium (135-145) mmol/L Potassium (3.5-5.0) mmol/L Chloride (101-111) mmol/L Carbon Dioxide (21-32) mmol/L Anion Gap (6-13) BUN (6-20) mg/dL Creatinine (0.6-1.2) mg/dL Estimated GFR (MDRD) (>89) Glucose (70-100) mg/dL Calcium (8.5-10.3) mg/dL Iron (45-182) ug/dL TIBC (250-450) ug/dL % Saturation (20-50) % Transferrin (180-329) mg/dL Total Bilirubin (0.2-1.0) mg/dL AST (10-42) IU/L ALT (10-60) IU/L Alkaline Phosphatase (42-121) IU/L Total Protein (6.7-8.2) g/dL Albumin (3.2-5.5) g/dL Globulin (2.1-4.2) g/dL Albumin/Globulin Ratio (1.0-2.2) Lipase (22-51) U/L Blood Type Blood Type Recheck Antibody Screen Crossmatch IS Only ABX Reporting Has patient been on IV antibiotics over the past 48 hours?: No Assessment/Plan - Problem List (1) Acute blood loss anemia Impression: Will type and CM 2 units and he did need transfusion with threshold<8 g/dl due to hx CAD. General surgery consulted with Dr. Mcgowan for possible endoscopy. 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 He is to be on proton pump inhibitors. No nonsteroidals. Dr. Mcgowan would like to watch for the next 24 hours then may be discharged tomorrow. (2) Thrombocytopenia Conclusion/Plan: Bone marrow suppression from oral chemotx, will hold for now once H/H stabilizes and symptoms resolve. Obtain coag panel. Dr. Mcgowan would not like him to get chemotherapy for the next 2 weeks. (3) Hx of gastric ulcer Conclusion/Plan: Upper endoscopy approx 4-5 years ago show a gastric ulcer, will place on IV PPI, Can be fed now. 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 Qualifiers: Laterality: right Qualified Code(s): C64.1 - Malignant neoplasm of right kidney, except renal pelvis
[2018-02-19] MEDS: PANTOPRAZOLE 40 MG VIAL IVP SCH (06:00)
[2018-02-19] MEDS: SODIUM CHLORIDE FLUSH 0.9% 10 ML SYRINGE IVP PRN (06:00)
[2018-02-19 06:11] LABS: BASOPHILS % (AUTO) 0.5 %; EOSINOPHILS # (AUTO) 0.4 10^3/uL (0.0-0.7); EOSINOPHILS % (AUTO) 10.7 %; HGB - HEMOGLOBIN 9.7 g/dL (14.0-18.0); LYMPHOCYTES # (AUTO) 0.9 10^3/uL (1.5-3.5); MEAN CORPUSCULAR HEMOGLOBIN 32.4 pg (27.0-31.0); MEAN CORPUSCULAR HGB CONC 32.9 g/dL (32.0-36.0); MEAN CORPUSCULAR VOLUME 98.7 fL (80.0-94.0); MEAN PLATELET VOLUME 9.6 fL (7.4-11.4); MONOCYTES # (AUTO) 0.3 10^3/uL (0.0-1.0); MONOCYTES % (AUTO) 7.7 %; NEUTROPHILS # (AUTO) 1.8 10^3/uL (1.5-6.6); NEUTROPHILS % (AUTO) 53.1 %; PLT - PLATELET COUNT 85 10^3/uL (130-450); RED BLOOD COUNT 2.99 10^6/uL (4.70-6.10); RED CELL DISTRIBUTION WIDTH 17.1 % (12.0-15.0); WHITE BLOOD COUNT 3.4 x10^3/uL (4.8-10.8)
[2018-02-19] MEDS ORDERED: LEVOTHYROXINE 100 MCG TABLET PO SCH (07:00)
[2018-02-19 07:07] VITALS: BP 121/51
[2018-02-19] MEDS: POLYETHYLENE GLYCOL 3350 17 GM PACKET PO SCH (09:12)
[2018-02-19] MEDS: SODIUM CHLORIDE FLUSH 0.9% 10 ML SYRINGE IVP SCH (09:12)
--- NOTE | 2018-02-19 09:14 | Discharge Plan ---
Discharge Plan Disposition: 01 Home, Self Care Condition: Stable Prescriptions: Ferrous Gluconate [Iron] 240 mg PO DAILY #30 tablet Pantoprazole [Protonix] 40 mg PO BID #42 tablet Diet: Regular Activity Restrictions: Activity as Tolerated Shower Restrictions: No Driving Restrictions: No Additional Instructions or Follow Up instructions: You were admitted to the hospital because of vomiting that started the night before. And it looked like coffee grounds. He continued to vomit through the night and then your diarrhea became quite dark colored stool. The vomit then developed bright red blood. While you are in the hospital we evaluated you as a possible upper GI bleed. We checked your hemoglobin, which is a measurement of how much red blood you have. From what we can see in your medical records you usually have 10.5-11 g of hemoglobin. You are chronically anemic. Normal for a male is minimum 14 g. With this upper GI bleed, you started at 8.2 g and went down to 6.7 g. We transfused you 2 units of red cells and you went up to 9.[address] Rosenberg, general surgery, saw you in consultation. He performed an esophagogastroduodenoscopy, EGD, and found you to have rough, bloody inflammation between your esophagus and your stomach. There was one small, nonbleeding ulcer in that same area. You can no longer take NSAIDs. These are nonsteroidal anti-inflammatory medications. As such you cannot take aspirin, Aleve, Naprosyn, ibuprofen, prescription diclofenac, Voltaren, etc. The only medicine you can take for pain that is [id number] would be Tylenol. Dr. Rosenberg would like you to take a proton pump inhibitor, call Protonix, that will help heal your inflammation and ulcer. Take the pill twice a day for 2 weeks and then go down to once a day. He would like to see you in 2 weeks. He plans on scheduling another EGD to make sure your ulcer has healed. He is also requesting that you do not take chemotherapy until further notice. Please see your primary care provider, Dr. Mihir saab, in follow-up in the next 2 weeks. Also keep your regularly scheduled appointment with Dr. Patterson, oncology. No Smoking: If you smoke, Please STOP! Call for help. Follow-up with: Paul Curry MD [Primary Care Provider] - Amadeo Rosenberg MD [Provider Admit Priv/Credential] - Yessenia Patterson MD [Physician No Access] - LESLIE ROSENBERG MD [Physician No Access] -
--- NOTE | 2018-02-19 09:20 | PROVIDER PROGRESS NOTE ---
Assessment/Plan - Problem List (1) Upper GI bleed Assessment/Plan: due to gastric ulcer, clinically resolving; Rec: home on high dose (BID) PPI therapy, no NSAIDs, hold chemotherapy pending f/u with oncologist; f/u with me in 2 weeks; needs f/u EGD in 2 months to document satisfactory healing of ulcer. - Current Meds Current Meds: Current Medications Generic Name Dose Route Start Last Admin Trade Name Freq PRN Reason Stop Dose Admin Levothyroxine Sodium 100 mcg 02/19/18 07:00 02/19/18 06:00 Synthroid PO 100 mcg QDAC DENEEN Administration Pantoprazole Sodium 40 mg 02/18/18 16:00 02/19/18 06:00 Protonix IVP 40 mg BIDAC DENEEN Administration Polyethylene Glycol 17 gm 02/18/18 09:00 02/19/18 09:12 Miralax PO Not Given DAILY DENEEN Sodium Chloride 10 ml 02/18/18 06:29 02/19/18 06:00 Normal Saline Flush 0.9% IVP 10 ml PRN PRN Administration NEEDED PER PROVIDER ORDERS Sodium Chloride 10 ml 02/18/18 09:00 02/19/18 09:12 Normal Saline Flush 0.9% IVP 10 ml 0100,0900,1700 DENEEN Administration - Lab Result Lab results reviewed: Yes Fish Bone Diagrams: 02/19/18 05:59 02/18/18 06:03 - Additional Planning Condition/Complexity: Improved Plan Discussed with:: Patient, Family Time Spent: 15-30 minutes Subjective - Subjective Patient Reports: Feeling Better, Resting Comfortably, No Complaints (no further N/V, no bm's since admission; tolerating full liquids well) Nursing Reports: No Complaints Objective Vital Signs: Vital Signs - 24 hr 02/18/18 02/18/18 02/18/18 14:53 15:06 15:50 Temperature 36.9 C 36.8 C 37.4 C Heart Rate 68 56 L 51 L Heart Rate [ Brachial] Respiratory 16 16 17 Rate Blood Pressure 141/63 H 134/52 H 107/49 L Blood Pressure [Left Brachial artery] Blood Pressure [Right Brachial artery] O2 Saturation 98 02/18/18 02/18/18 02/18/18 15:55 16:00 16:08 Temperature 37.4 C 36.7 C 37.1 C Heart Rate 54 L 55 L 69 Heart Rate [ 52 L Brachial] Respiratory 16 16 16 Rate Blood Pressure 109/51 L 125/52 L 115/48 L Blood Pressure [Left Brachial artery] Blood Pressure 145/53 H [Right Brachial artery] O2 Saturation 100 94 100 02/18/18 02/18/18 02/18/18 16:13 16:25 16:49 Temperature 37.1 C 36.9 C 36.6 C Heart Rate 50 L 46 L Heart Rate [ 48 L Brachial] Respiratory 16 16 16 Rate Blood Pressure 127/52 L 127/45 L Blood Pressure [Left Brachial artery] Blood Pressure 125/47 L [Right Brachial artery] O2 Saturation 100 100 02/18/18 02/18/18 02/18/18 17:02 17:30 18:00 Temperature 36.5 C 36.7 C 36.8 C Heart Rate 51 L 51 L Heart Rate [ 54 L Brachial] Respiratory 16 16 16 Rate Blood Pressure 134/50 H 129/48 L Blood Pressure [Left Brachial artery] Blood Pressure 132/51 H [Right Brachial artery] O2 Saturation 96 02/18/18 02/18/18 02/18/18 19:00 20:24 23:17 Temperature 36.7 C 36.7 C 36.7 C Heart Rate 57 L Heart Rate [ 57 L 56 L Brachial] Respiratory 18 18 20 Rate Blood Pressure 159/57 H Blood Pressure 135/59 H [Left Brachial artery] Blood Pressure 159/57 H [Right Brachial artery] O2 Saturation 95 94 02/19/18 02/19/18 02:31 07:00 Temperature 36.5 C 36.8 C Heart Rate Heart Rate [ 52 L 58 L Brachial] Respiratory 20 16 Rate Blood Pressure Blood Pressure 157/68 H [Left Brachial artery] Blood Pressure 121/51 L [Right Brachial artery] O2 Saturation 94 92 Oxygen O2 Source Room air I&O (Last 24 Hrs): Intake and Output Totals x24h 02/17/18 02/18/18 02/19/18 23:59 23:59 23:59 Intake Total 3337 640 Balance 3337 640 General: Alert, Oriented x3, Cooperative, No acute distress Abdomen: Soft, No tenderness - Results Results: Laboratory Results WBC 3.4 x10^3/uL (4.8-10.8) L 02/19/18 05:59 RBC 2.99 10^6/uL (4.70-6.10) L 02/19/18 05:59 Hgb 9.7 g/dL (14.0-18.0) L 02/19/18 05:59 Hct 29.5 % (42.0-52.0) L 02/19/18 05:59 MCV 98.7 fL (80.0-94.0) H 02/19/18 05:59 MCH 32.4 pg (27.0-31.0) H 02/19/18 05:59 MCHC 32.9 g/dL (32.0-36.0) 02/19/18 05:59 RDW 17.1 % (12.0-15.0) H 02/19/18 05:59 Plt Count 85 10^3/uL (130-450) L 02/19/18 05:59 MPV 9.6 fL (7.4-11.4) 02/19/18 05:59 Neut # (Auto) 1.8 10^3/uL (1.5-6.6) 02/19/18 05:59 Lymph # (Auto) 0.9 10^3/uL (1.5-3.5) L 02/19/18 05:59 Nicholas # (Auto) 0.3 10^3/uL (0.0-1.0) 02/19/18 05:59 Eos # (Auto) 0.4 10^3/uL (0.0-0.7) 02/19/18 05:59 Baso # (Auto) 0.0 10^3/uL (0.0-0.1) 02/19/18 05:59 Absolute Nucleated RBC 0.00 x10^3/uL 02/19/18 05:59 Nucleated RBC % 0.1 /100WBC 02/19/18 05:59 PT 11.7 secs (9.9-12.6) 02/18/18 06:03 INR 1.0 (0.8-1.2) 02/18/18 06:03 APTT 28.9 secs (24.9-33.3) 02/18/18 06:03 Sodium 140 mmol/L (135-145) 02/18/18 06:03 Potassium 4.8 mmol/L (3.5-5.0) 02/18/18 06:03 Chloride 112 mmol/L (101-111) H 02/18/18 06:03 Carbon Dioxide 20 mmol/L (21-32) L 02/18/18 06:03 Anion Gap 8.0 (6-13) 02/18/18 06:03 BUN 47 mg/dL (6-20) H 02/18/18 06:03 Creatinine 1.9 mg/dL (0.6-1.2) H 02/18/18 06:03 Estimated GFR (MDRD) 34 (>89) L 02/18/18 06:03 Glucose 132 mg/dL (70-100) H 02/18/18 06:03 Calcium 8.5 mg/dL (8.5-10.3) 02/18/18 06:03 Iron 89 ug/dL (45-182) 02/18/18 06:03 TIBC 234 ug/dL (250-450) L 02/18/18 06:03 % Saturation 38 % (20-50) 02/18/18 06:03 Transferrin 167 mg/dL (180-329) L 02/18/18 06:03 Total Bilirubin 0.5 mg/dL (0.2-1.0) 02/18/18 06:03 AST 41 IU/L (10-42) 02/18/18 06:03 ALT 43 IU/L (10-60) 02/18/18 06:03 Alkaline Phosphatase 41 IU/L (42-121) L 02/18/18 06:03 Total Protein 5.4 g/dL (6.7-8.2) L 02/18/18 06:03 Albumin 2.8 g/dL (3.2-5.5) L 02/18/18 06:03 Globulin 2.6 g/dL (2.1-4.2) 02/18/18 06:03 Albumin/Globulin Ratio 1.1 (1.0-2.2) 02/18/18 06:03 Lipase 33 U/L (22-51) 02/18/18 06:03 Blood Type O POSITIVE 02/18/18 06:03 Blood Type Recheck O POSITIVE 02/18/18 13:33 Antibody Screen NEGATIVE 02/18/18 06:03 Crossmatch IS Only See Detail 02/18/18 06:03 - Procedures Procedures: EGD with bx yesterday, with findings of small gastric ulcer at gastric cardia, long segment Gutierrez's, and large HH. no active bleeding identified. ABX Reporting Has patient been on IV antibiotics over the past 48 hours?: No
--- NOTE | 2018-02-20 01:41 | DISCHARGE SUMMARY ---
Physician: Kimberly Ferreira MD DATE OF ADMISSION: 02/18/2018 DATE OF DISCHARGE: 02/19/2018 DISCHARGE DIAGNOSES 1. Acute gastrointestinal bleeding. 2. Acute blood loss anemia. 3. Gutierrez's esophagus with esophagitis. 4. Gastric ulcer. 5. Acute renal insufficiency. 6. Renal cell carcinoma. 7. Thrombocytopenia. DISCHARGE MEDICATIONS 1. Amlodipine 10 mg daily. 2. Apresoline 25 mg daily. 3. Synthroid 100 mcg daily. 4. Lovastatin 10 mg daily. 5. Ferrous gluconate 240 mg daily. 6. Pantoprazole 40 mg p.o. b.i.d. for two weeks, then one p.o. daily for two weeks. 7. The patient is to stop all nonsteroidals, including his aspirin. PRINCIPAL PROCEDURES 1. EGD showing erosive esophagitis, and a nonbleeding GE ulcer. 2. Transfusion of two units of packed cells. 3. Gastric cardia biopsy showing no squamous mucosa identified, no goblet cell metaplasia. 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 [place] to be Gutierrez's esophagus versus goblet cell metaplasia. HOSPITAL COURSE: The patient is an 87-year-old gentleman who has metastatic renal cell CA. He has a lready had a nephrectomy of a kidney for this. Treated. Seemed to have remission, but had recurrenc e with metastases to the lungs. Even though he has met with oncology and it has been stressed to him that he is on palliative care, this patient feels like his current treatment should be curing him. He is currently awaiting authorization for him to start Opdivo. His last use of Votrient was a few m onths back. He has no history of abdominal pain, ulcer disease. He does have coronary artery disease as well as this neoplasm. He presented to the emergency room department with episode of vomiting that was "like coffee grounds. " Throughout the night, he continued to vomit and diarrhea began and he now has dark diarrhea early t his morning. Vomit is noted to have bright red blood. No history of varices. No history of alcohol abuse. He is on oral Votrient. His usual blood pressures in the 140s to 150s. In our emergency room, he was afebrile at 36.7, pulse was 73, blood pressure 108/60 with respirations 16, and he was 95% on room air. He was immediately resuscitated with IV fluids and blood pressure was able to come back up to 141/63. His initial hemog lobin was 8.2. He usually has hemoglobin between 10.5-11. The patient was placed into the hospital in acute inpatient stay. We felt that because of his age an d comorbidities and frequency of blood in stool and blood in emesis, he would be with us greater than two midnights. Over the course of the next 24 hours, his hemoglobin dropped to 6.7. He had no further episodes of e mesis or diarrhea. Stool was guaiac positive. He was transfused two units of packed cells. He was also started on a proton pump inhibitor, taken to the OR and had an EGD with Dr. Mcgowan. He h ad erosive esophagitis in the distal esophagus and GE junction. At the GE junction, he had a nonblee ding ulcer. The stomach was relatively normal. The patient remained stable over 24 hours. Did not have any further drop in hemoglobin. Blood press ure remained stable. He was started on a regular diet, advanced. Because he was hemodynamically sta ble and not having any evidence of bleeding, discharge, and hemoglobin was 9.7, he was felt stable to go home. He recovered and stabilized faster than we anticipated in this 87-year-old who is currentl y getting chemotherapy for renal cell CA. He is discharged in stable condition. PHYSICAL EXAMINATION VITAL SIGNS: Temperature 36.8, pulse 56, blood pressure 134/52, respirations 16, 95% on room air. GENERAL: He is an anxious, lean, lanky white male who looks his stated age. LUNGS: Clear. HEART: He has regular rate and rhythm, a soft systolic ejection murmur. ABDOMEN: Soft, nontender. No masses. EXTREMITIES: Slight edema, but he is ambulating without any assistance. Tolerated his breakfast wit hout any nausea. He is asked to follow up with his primary care provider, Dr. Curry, in the next 2-3 weeks. Asked t o see Dr. Patterson or oncology in the next 2-[address] Mcgowan, general surgery, has told the patien t that he cannot take any nonsteroidals at all, including his aspirin. Those have been written in [place] s discharge instructions. He is also asked not to take any chemotherapy for the next two weeks. Greater than 30 minutes was spent coordinating discharge. TD: 02/19/2018 15:40
== END 2018-02-19 12:52 | disposition home or self-care (01) | DRG 378 ==
LOC: EDUNIT# → ED 05:44 → MS2 06:29
PROVIDERS: ADMIT Family Medicine; ATTEND Specialist
PROC: 0DB68ZX Excision of Stomach, Via Natural or Artificial Opening Endoscopic, Diagnostic (ICD-10-PCS; 2018-02-18)
PROC: 0DB28ZX Excision of Middle Esophagus, Via Natural or Artificial Opening Endoscopic, Diagnostic (ICD-10-PCS; principal; 2018-02-18 14:00)
DX: K92.0 Hematemesis (principal); K25.4 Chronic or unspecified gastric ulcer with hemorrhage; D64.9 Anemia, unspecified; D62 Acute posthemorrhagic anemia; C64.1 Malignant neoplasm of right kidney, except renal pelvis; C78.00 Secondary malignant neoplasm of unspecified lung; E87.2 Acidosis; E89.6 Postprocedural adrenocortical (-medullary) hypofunction; K44.9 Diaphragmatic hernia without obstruction or gangrene; K22.70 Barrett's esophagus without dysplasia; K22.11 Ulcer of esophagus with bleeding; N28.9 Disorder of kidney and ureter, unspecified; D69.6 Thrombocytopenia, unspecified; Z90.5 Acquired absence of kidney; Z51.5 Encounter for palliative care; I25.10 Atherosclerotic heart disease of native coronary artery without angina pectoris; K92.1 Melena; Z92.21 Personal history of antineoplastic chemotherapy; Z86.010 Personal history of colon polyps; Z90.79 Acquired absence of other genital organ(s); M19.90 Unspecified osteoarthritis, unspecified site; Z90.49 Acquired absence of other specified parts of digestive tract; Z98.52 Vasectomy status; Z85.46 Personal history of malignant neoplasm of prostate
CPT/HCPCS: 36415; 80053; 82274; 83540; 83690; 84466; 85025; 85610; 85730; 86850; 86900; 86901; 86920; 96361; 96374; 96375; 99284; 99285

== ENCOUNTER 2018-06-12 11:23 | Outpatient (CLI) | payer MEDICARE ==
[2018-06-12 11:55] LABS: BASOPHILS % (AUTO) 0.5 %; EOSINOPHILS # (AUTO) 0.3 10^3/uL (0.0-0.7); EOSINOPHILS % (AUTO) 6.1 %; HGB - HEMOGLOBIN 11.2 g/dL (14.0-18.0); LYMPHOCYTES # (AUTO) 0.8 10^3/uL (1.5-3.5); LYMPHOCYTES % (AUTO) 18.2 %; MEAN CORPUSCULAR HEMOGLOBIN 27.7 pg (27.0-31.0); MEAN CORPUSCULAR HGB CONC 32.3 g/dL (32.0-36.0); MEAN CORPUSCULAR VOLUME 85.8 fL (80.0-94.0); MEAN PLATELET VOLUME 8.3 fL (7.4-11.4); MONOCYTES # (AUTO) 0.4 10^3/uL (0.0-1.0); NEUTROPHILS # (AUTO) 2.8 10^3/uL (1.5-6.6); NEUTROPHILS % (AUTO) 66.2 %; PLT - PLATELET COUNT 146 10^3/uL (130-450); RED BLOOD COUNT 4.06 10^6/uL (4.70-6.10); RED CELL DISTRIBUTION WIDTH 15.6 % (12.0-15.0); WHITE BLOOD COUNT 4.2 x10^3/uL (4.8-10.8)
[2018-06-12 12:13] LABS: ALBUMIN 3.7 g/dL (3.2-5.5); ALBUMIN/GLOBULIN RATIO 1.4 (1.0-2.2); BILIRUBIN,TOTAL 0.5 mg/dL (0.2-1.0); CREATININE 1.5 mg/dL (0.6-1.2); TOTAL PROTEIN 6.4 g/dL (6.7-8.2)
== END 2018-06-12 11:24 | disposition home or self-care (01) ==
LOC: LAB 11:23
PROVIDERS: ATTEND Internal Medicine Gastroenterology
DX: K25.4 Chronic or unspecified gastric ulcer with hemorrhage (principal); I10 Essential (primary) hypertension
CPT/HCPCS: 36415; 80053; 85025

== ENCOUNTER 2018-06-13 07:25 | Day surgery (SDC) | payer MEDICARE ==
[2018-06-13] MEDS ORDERED: LACTATED RINGERS 1,000 ML IV ONE (07:29)
[2018-06-13] MEDS ORDERED: LIDO GARGLE 30 ML BOTTLE ONE (08:56)
[2018-06-13] MEDS ORDERED: fentaNYL 100 MCG/2 ML VIAL IVP ONE (09:03)
[2018-06-13] MEDS ORDERED: MIDAZOLAM 2 MG/2 ML VIAL IVP ONE (09:03)
[2018-06-13 09:52] VITALS: BP 107/47
== END 2018-06-13 07:26 | disposition home or self-care (01) ==
LOC: SDS 07:25
PROVIDERS: ATTEND Internal Medicine Gastroenterology
PROC: 0DJ08ZZ Inspection of Upper Intestinal Tract, Via Natural or Artificial Opening Endoscopic (ICD-10-PCS; principal; 2018-06-13 08:45)
DX: K25.9 Gastric ulcer, unspecified as acute or chronic, without hemorrhage or perforation (principal); K44.9 Diaphragmatic hernia without obstruction or gangrene; K22.70 Barrett's esophagus without dysplasia; I10 Essential (primary) hypertension; C64.9 Malignant neoplasm of unspecified kidney, except renal pelvis
CPT/HCPCS: 43235; A9270; J7120

== ENCOUNTER 2018-06-28 09:40 | Outpatient (CLI) | payer MEDICARE ==
[2018-06-28 10:09] LABS: CREATININE 1.5 mg/dL (0.6-1.2)
== END 2018-06-28 09:41 | disposition home or self-care (01) ==
LOC: LAB 09:40
PROVIDERS: ATTEND Internal Medicine Hematology & Oncology
DX: C64.1 Malignant neoplasm of right kidney, except renal pelvis (principal); C78.00 Secondary malignant neoplasm of unspecified lung
CPT/HCPCS: 36415; 82565

== ENCOUNTER 2018-08-21 12:28 | Emergency (ER) | payer MEDICARE ==
[2018-08-21 12:34] VITALS: BP 139/70
[2018-08-21] MEDS ORDERED: PROPARACAINE 0.5% OPHTH DROPS 15 ML EACHEYE STA (13:03)
--- NOTE | 2018-08-21 13:32 | ED Physician Documentation ---
PD HPI OPHTHO - Stated complaint Stated Complaint: RIGHT EYE IRRITATION - Chief complaint Chief Complaint: Heent - History obtained from History obtained from: Patient - History of Present Illness Timing - onset: How many days ago (2) Timing - duration: Days (2) Timing - details: Abrupt onset, Still present, Other (worsening, now with decreased vision in R eye) Severity Comments: moderate Location: Right Quality / character: Itching Associated symptoms: Redness, Decreased vision (in R eye since this morning) Contributing factors: Wears glasses (for reading only). 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 Review of Systems Ten Systems: 10 systems reviewed and negative Constitutional: denies: Fever, Chills Eyes: reports: Decreased vision, Photophobia, Irritation. 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, liver, and pancreas - Past Surgical History Past Surgical History: Yes General: Appendectomy, Colonoscopy, EGD, Other Ortho: Spine surgery, 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 - Present Medications Home Medications: Ambulatory Orders Medication Instructions Recorded Confirmed RX: Levothyroxine [Synthroid] 100 mcg PO QDAC 10/17/17 08/21/18 RX: Lovastatin 10 mg PO DAILY 10/17/17 08/21/18 RX: amLODIPine [Norvasc] 10 mg PO DAILY 10/17/17 08/21/18 RX: hydrALAZINE [Apresoline] 50 mg PO DAILY 10/17/17 08/21/18 Pantoprazole [Protonix] 40 mg PO BID #42 tablet 02/19/18 08/21/18 RX: Ferrous Gluconate [Iron] 240 mg PO DAILY #30 tablet 02/19/18 08/21/18 - Allergies Allergies/Adverse Reactions: Allergies Allergy/AdvReac Type Severity Reaction Status Date / Time No Known Drug Allergies Allergy Verified 08/21/18 12:33 - Social History Does the pt smoke?: No Smoking Status: Never smoker Does the pt drink ETOH?: No Does the pt have substance abuse?: No - Immunizations Immunizations are current?: Yes PD ED PE NORMAL - Vitals Vital signs reviewed: Yes - General General: Alert and oriented X 3, No acute distress, Well developed/nourished - HEENT HEENT: Atraumatic, Pharynx benign - Neck Neck: Supple, no meningeal sign - Cardiac Cardiac: RRR - Respiratory Respiratory: No respiratory distress - Abdomen Abdomen: Non distended - Male Male : Deferred - Rectal Rectal: Deferred - Derm Derm: Normal color, Warm and dry, No rash - Extremities Extremities: No deformity - Neuro Neuro: Alert and oriented X 3 Eye Opening: Spontaneous Motor: Obeys Commands Verbal: Oriented GCS Score: 15 - Psych Psych: Normal mood, Normal affect PD ED PE EXPANDED - Eyes Eyes: Visual acuity - see nn, PERRL, Normal accommodation, Right eye, Normal eyelids, Injected conj/sclera, Normal corneas. No: Eyelid injury, Eyelid swelling, Exudate, Subconj hemorrhage, Scleral icterus, Corneal abrasion, Fluorescein uptake Results - Vitals Vitals: Vital Signs - 24 hr 08/21/18 12:30 Temperature 36.7 C Heart Rate 63 Respiratory 18 Rate Blood Pressure 139/70 H O2 Saturation 96 Oxygen O2 Source Room air PD MEDICAL DECISION MAKING - ED course Complexity details: reviewed results, re-evaluated patient, considered diffe rential, d/w patient ED course: ddx - conjunctivitis, glaucoma, iritis, scleritis, episcleritis, corneal abrasion, keratitis, foreign body 88 y/o M with hx of cataract surgery with R eye itching, discomfort, decreased vision. Normal fluorescein exam. IOP is 9 and 10 when repeated. Exam shows scleral injection, no consensual photophobia to suggest iritis. No abrasion. No lesions. Pt has no rash. No evidence of foreign body. possible keratitis or conjunctivitis. Discussed case with Ophthalmology Dr. Turpin who will see pt in clinic emergently today. Sent pt to clinic. Departure - Departure Disposition: Home, Self Care Clinical Impression: Redness of eye, right Condition: Stable Record reviewed to determine appropriate education?: Yes Follow-Up: Ronni Turpin MD [Provider Admit Priv/Credential] - 08/21/18 ([facility], [facility]) Comments: Go to Dr. Turpin's office in [place] today. The address is [facility] [address] in [place]. They will seen you immediately. Discharge Date/Time: 08/21/18 14:14
== END 2018-08-21 14:14 | disposition home or self-care (01) ==
LOC: ED 12:28
DX: H57.89 Other specified disorders of eye and adnexa (principal); H57.11 Ocular pain, right eye; Z86.69 Personal history of other diseases of the nervous system and sense organs
CPT/HCPCS: 99282; J3490

== ENCOUNTER 2018-10-03 07:48 | Outpatient (CLI) | payer MEDICARE ==
[2018-10-03 08:38] LABS: ALBUMIN 3.7 g/dL (3.2-5.5); ALBUMIN/GLOBULIN RATIO 1.2 (1.0-2.2); BILIRUBIN,TOTAL 0.5 mg/dL (0.2-1.0); CALCIUM 9.2 mg/dL (8.5-10.3); CREATININE 1.5 mg/dL (0.6-1.2); TOTAL PROTEIN 6.9 g/dL (6.7-8.2)
[2018-10-03 08:48] LABS: BASOPHILS % (AUTO) 0.6 %; EOSINOPHILS # (AUTO) 0.2 10^3/uL (0.0-0.7); EOSINOPHILS % (AUTO) 4.5 %; HGB - HEMOGLOBIN 12.3 g/dL (14.0-18.0); LYMPHOCYTES # (AUTO) 0.7 10^3/uL (1.5-3.5); LYMPHOCYTES % (AUTO) 13.7 %; MEAN CORPUSCULAR HEMOGLOBIN 26.5 pg (27.0-31.0); MEAN CORPUSCULAR HGB CONC 30.3 g/dL (32.0-36.0); MEAN CORPUSCULAR VOLUME 87.3 fL (80.0-94.0); MEAN PLATELET VOLUME 10.7 fL (7.4-11.4); MONOCYTES # (AUTO) 0.6 10^3/uL (0.0-1.0); MONOCYTES % (AUTO) 10.7 %; NEUTROPHILS # (AUTO) 3.8 10^3/uL (1.5-6.6); NEUTROPHILS % (AUTO) 70.3 %; PLT - PLATELET COUNT 190 10^3/uL (130-450); RED BLOOD COUNT 4.65 10^6/uL (4.70-6.10); RED CELL DISTRIBUTION WIDTH 15.8 % (12.0-15.0); WHITE BLOOD COUNT 5.3 x10^3/uL (4.8-10.8)
[2018-10-03 08:53] LABS: CORTISOL 13.6 ug/dL
[2018-10-03 09:00] LABS: FREE T4 (FREE THYROXINE) 1.06 ng/dL (0.58-1.64)
== END 2018-10-03 07:49 | disposition home or self-care (01) ==
LOC: LAB 07:48
PROVIDERS: ATTEND Internal Medicine Hematology & Oncology
DX: C64.1 Malignant neoplasm of right kidney, except renal pelvis (principal); C78.00 Secondary malignant neoplasm of unspecified lung
CPT/HCPCS: 36415; 80053; 82533; 82947; 84439; 84443; 84478; 85025

== ENCOUNTER 2018-10-22 07:49 | Outpatient (CLI) | payer MEDICARE ==
[2018-10-22 08:15] LABS: CREATININE 1.5 mg/dL (0.6-1.2)
== END 2018-10-22 07:50 | disposition home or self-care (01) ==
LOC: LAB 07:49
PROVIDERS: ATTEND Internal Medicine
DX: C78.02 Secondary malignant neoplasm of left lung (principal)
CPT/HCPCS: 36415; 82565; 84520

== ENCOUNTER 2018-11-02 07:48 | Outpatient (CLI) | payer MEDICARE ==
[2018-11-02 08:31] LABS: ALBUMIN 3.7 g/dL (3.2-5.5); ALBUMIN/GLOBULIN RATIO 1.2 (1.0-2.2); BILIRUBIN,TOTAL 0.6 mg/dL (0.2-1.0); CALCIUM 9.4 mg/dL (8.5-10.3); CREATININE 1.8 mg/dL (0.6-1.2); TOTAL PROTEIN 6.8 g/dL (6.7-8.2)
[2018-11-02 08:57] LABS: CORTISOL 13.1 ug/dL
[2018-11-02 09:01] LABS: THYROID STIMULATING HORMONE 0.9 uIU/mL (0.34-5.60)
[2018-11-02 09:03] LABS: FREE T4 (FREE THYROXINE) 1.12 ng/dL (0.58-1.64)
== END 2018-11-02 07:49 | disposition home or self-care (01) ==
LOC: LAB 07:48
PROVIDERS: ATTEND Internal Medicine Hematology & Oncology
DX: C64.1 Malignant neoplasm of right kidney, except renal pelvis (principal); C78.00 Secondary malignant neoplasm of unspecified lung
CPT/HCPCS: 36415; 80053; 82533; 84439; 84443; 84478

== ENCOUNTER 2018-11-29 06:42 | Outpatient (CLI) | payer MEDICARE ==
[2018-11-29 06:56] LABS: BASOPHILS % (AUTO) 0.4 %; EOSINOPHILS # (AUTO) 0.2 10^3/uL (0.0-0.7); EOSINOPHILS % (AUTO) 3.4 %; HGB - HEMOGLOBIN 12.6 g/dL (14.0-18.0); LYMPHOCYTES # (AUTO) 0.9 10^3/uL (1.5-3.5); LYMPHOCYTES % (AUTO) 19.5 %; MEAN CORPUSCULAR HEMOGLOBIN 27.3 pg (27.0-31.0); MEAN CORPUSCULAR HGB CONC 30.9 g/dL (32.0-36.0); MEAN CORPUSCULAR VOLUME 88.3 fL (80.0-94.0); MEAN PLATELET VOLUME 9.3 fL (7.4-11.4); MONOCYTES # (AUTO) 0.6 10^3/uL (0.0-1.0); MONOCYTES % (AUTO) 14.1 %; NEUTROPHILS # (AUTO) 2.8 10^3/uL (1.5-6.6); NEUTROPHILS % (AUTO) 62.2 %; PLT - PLATELET COUNT 140 10^3/uL (130-450); RED BLOOD COUNT 4.62 10^6/uL (4.70-6.10); RED CELL DISTRIBUTION WIDTH 16.3 % (12.0-15.0); WHITE BLOOD COUNT 4.5 x10^3/uL (4.8-10.8)
[2018-11-29 07:10] LABS: ALBUMIN 3.8 g/dL (3.2-5.5); ALBUMIN/GLOBULIN RATIO 1.1 (1.0-2.2); BILIRUBIN,TOTAL 0.8 mg/dL (0.2-1.0); CALCIUM 9.4 mg/dL (8.5-10.3); CREATININE 1.6 mg/dL (0.6-1.2); TOTAL PROTEIN 7.2 g/dL (6.7-8.2)
[2018-12-02 09:05] LABS: HB2 TOTAL 12.9 g/dL; HEMOGLOBIN A1C 0.51 g/dL; HEMOGLOBIN A1C % 5.8 % (4.6-6.2)
== END 2018-11-29 06:43 | disposition home or self-care (01) ==
LOC: LAB 06:42
PROVIDERS: ATTEND Internal Medicine Hematology & Oncology
DX: C64.9 Malignant neoplasm of unspecified kidney, except renal pelvis (principal); C78.00 Secondary malignant neoplasm of unspecified lung
CPT/HCPCS: 36415; 80053; 82533; 83036; 84443; 84478; 85025

== ENCOUNTER 2018-12-27 11:21 | Outpatient (CLI) | payer MEDICARE ==
[2018-12-27 12:02] LABS: ALBUMIN 4.1 g/dL (3.2-5.5); ALBUMIN/GLOBULIN RATIO 1.2 (1.0-2.2); BILIRUBIN,TOTAL 0.7 mg/dL (0.2-1.0); CALCIUM 9.4 mg/dL (8.5-10.3); CREATININE 1.5 mg/dL (0.6-1.2); TOTAL PROTEIN 7.4 g/dL (6.7-8.2)
[2018-12-27 12:20] LABS: CORTISOL 8.8 ug/dL
[2018-12-27 12:24] LABS: THYROID STIMULATING HORMONE 1.29 uIU/mL (0.34-5.60)
[2018-12-27 12:26] LABS: FREE T4 (FREE THYROXINE) 0.95 ng/dL (0.58-1.64)
== END 2018-12-27 11:22 | disposition home or self-care (01) ==
LOC: LAB 11:21
PROVIDERS: ATTEND Internal Medicine Hematology & Oncology
DX: Z51.11 Encounter for antineoplastic chemotherapy (principal); C64.1 Malignant neoplasm of right kidney, except renal pelvis; C78.00 Secondary malignant neoplasm of unspecified lung
CPT/HCPCS: 36415; 80053; 82533; 82947; 84439; 84443; 84478

== ENCOUNTER 2019-01-24 08:37 | Outpatient (CLI) | payer MEDICARE ==
[2019-01-24 09:25] LABS: CREATININE 1.5 mg/dL (0.6-1.2)
== END 2019-01-24 08:38 | disposition home or self-care (01) ==
LOC: LAB 08:37
PROVIDERS: ATTEND Internal Medicine Hematology & Oncology
DX: C64.1 Malignant neoplasm of right kidney, except renal pelvis (principal)
CPT/HCPCS: 36415; 82565

== ENCOUNTER 2019-02-22 09:00 | Outpatient (CLI) | payer MEDICARE ==
[2019-02-22 09:47] LABS: BASOPHILS % (AUTO) 0.8 %; EOSINOPHILS # (AUTO) 0.2 10^3/uL (0.0-0.7); EOSINOPHILS % (AUTO) 4.6 %; HGB - HEMOGLOBIN 12.8 g/dL (14.0-18.0); LYMPHOCYTES # (AUTO) 0.8 10^3/uL (1.5-3.5); LYMPHOCYTES % (AUTO) 15.3 %; MEAN CORPUSCULAR HEMOGLOBIN 27.7 pg (27.0-31.0); MEAN CORPUSCULAR VOLUME 89.4 fL (80.0-94.0); MEAN PLATELET VOLUME 10.4 fL (7.4-11.4); MONOCYTES # (AUTO) 0.6 10^3/uL (0.0-1.0); MONOCYTES % (AUTO) 11.3 %; NEUTROPHILS # (AUTO) 3.4 10^3/uL (1.5-6.6); NEUTROPHILS % (AUTO) 67.6 %; PLT - PLATELET COUNT 143 10^3/uL (130-450); RED BLOOD COUNT 4.62 10^6/uL (4.70-6.10); RED CELL DISTRIBUTION WIDTH 15.8 % (12.0-15.0)
[2019-02-22 10:07] LABS: ALBUMIN 3.9 g/dL (3.2-5.5); ALBUMIN/GLOBULIN RATIO 1.3 (1.0-2.2); BILIRUBIN,TOTAL 0.7 mg/dL (0.2-1.0); CALCIUM 9.1 mg/dL (8.5-10.3); CREATININE 1.5 mg/dL (0.6-1.2); TOTAL PROTEIN 6.9 g/dL (6.7-8.2); URIC ACID 6.7 mg/dL (2.6-7.2)
[2019-02-22 10:35] LABS: CORTISOL 10.2 ug/dL
[2019-02-22 10:39] LABS: THYROID STIMULATING HORMONE 1.57 uIU/mL (0.34-5.60)
[2019-02-22 10:41] LABS: FREE T4 (FREE THYROXINE) 1.18 ng/dL (0.58-1.64)
== END 2019-02-22 09:01 | disposition home or self-care (01) ==
LOC: LAB 09:00
PROVIDERS: ATTEND Emergency Medicine
DX: C64.1 Malignant neoplasm of right kidney, except renal pelvis (principal); C78.00 Secondary malignant neoplasm of unspecified lung
CPT/HCPCS: 36415; 80053; 82533; 84439; 84443; 84478; 84550; 85025

== ENCOUNTER 2019-03-24 08:18 | Outpatient (CLI) | payer MEDICARE ==
[2019-03-24 08:42] LABS: BASOPHILS % (AUTO) 0.9 %; EOSINOPHILS # (AUTO) 0.3 10^3/uL (0.0-0.7); EOSINOPHILS % (AUTO) 5.8 %; HGB - HEMOGLOBIN 13.9 g/dL (14.0-18.0); LYMPHOCYTES % (AUTO) 20.5 %; MEAN CORPUSCULAR HEMOGLOBIN 27.5 pg (27.0-31.0); MEAN CORPUSCULAR VOLUME 88.9 fL (80.0-94.0); MEAN PLATELET VOLUME 10.2 fL (7.4-11.4); MONOCYTES # (AUTO) 0.6 10^3/uL (0.0-1.0); MONOCYTES % (AUTO) 12.2 %; NEUTROPHILS # (AUTO) 2.8 10^3/uL (1.5-6.6); NEUTROPHILS % (AUTO) 60.4 %; PLT - PLATELET COUNT 155 10^3/uL (130-450); RED BLOOD COUNT 5.05 10^6/uL (4.70-6.10); RED CELL DISTRIBUTION WIDTH 15.7 % (12.0-15.0); WHITE BLOOD COUNT 4.7 x10^3/uL (4.8-10.8)
[2019-03-24 08:59] LABS: ALBUMIN 4.1 g/dL (3.2-5.5); ALBUMIN/GLOBULIN RATIO 1.3 (1.0-2.2); BILIRUBIN,TOTAL 0.7 mg/dL (0.2-1.0); CALCIUM 9.5 mg/dL (8.5-10.3); CREATININE 1.8 mg/dL (0.6-1.2); TOTAL PROTEIN 7.3 g/dL (6.7-8.2)
[2019-03-24 09:14] LABS: THYROID STIMULATING HORMONE 1.72 uIU/mL (0.34-5.60)
[2019-03-24 09:16] LABS: FREE T4 (FREE THYROXINE) 1.03 ng/dL (0.58-1.64)
== END 2019-03-24 08:19 | disposition home or self-care (01) ==
LOC: LAB 08:18
PROVIDERS: ATTEND Internal Medicine Hematology & Oncology
DX: C64.1 Malignant neoplasm of right kidney, except renal pelvis (principal); C78.00 Secondary malignant neoplasm of unspecified lung
CPT/HCPCS: 36415; 80053; 82533; 84439; 84443; 84478; 85025

== ENCOUNTER 2019-04-18 08:27 | Outpatient (CLI) | payer MEDICARE ==
[2019-04-18 09:05] LABS: BASOPHILS % (AUTO) 0.5 %; EOSINOPHILS # (AUTO) 0.4 10^3/uL (0.0-0.7); EOSINOPHILS % (AUTO) 6.5 %; HGB - HEMOGLOBIN 13.2 g/dL (14.0-18.0); LYMPHOCYTES % (AUTO) 17.2 %; MEAN CORPUSCULAR HEMOGLOBIN 27.2 pg (27.0-31.0); MEAN CORPUSCULAR HGB CONC 30.9 g/dL (32.0-36.0); MEAN PLATELET VOLUME 10.1 fL (7.4-11.4); MONOCYTES # (AUTO) 0.6 10^3/uL (0.0-1.0); MONOCYTES % (AUTO) 10.3 %; NEUTROPHILS # (AUTO) 3.6 10^3/uL (1.5-6.6); NEUTROPHILS % (AUTO) 65.3 %; PLT - PLATELET COUNT 167 10^3/uL (130-450); RED BLOOD COUNT 4.85 10^6/uL (4.70-6.10); RED CELL DISTRIBUTION WIDTH 15.9 % (12.0-15.0); WHITE BLOOD COUNT 5.5 x10^3/uL (4.8-10.8)
[2019-04-18 09:19] LABS: ALBUMIN 3.8 g/dL (3.2-5.5); ALBUMIN/GLOBULIN RATIO 1.2 (1.0-2.2); BILIRUBIN,TOTAL 0.7 mg/dL (0.2-1.0); CALCIUM 9.4 mg/dL (8.5-10.3); CREATININE 1.5 mg/dL (0.6-1.2)
[2019-04-18 10:04] LABS: CORTISOL 12.8 ug/dL
[2019-04-18 10:08] LABS: THYROID STIMULATING HORMONE 2.9 uIU/mL (0.34-5.60)
[2019-04-18 10:10] LABS: FREE T4 (FREE THYROXINE) 0.88 ng/dL (0.58-1.64)
== END 2019-04-18 08:28 | disposition home or self-care (01) ==
LOC: LAB 08:27
PROVIDERS: ATTEND Internal Medicine Hematology & Oncology
DX: C64.1 Malignant neoplasm of right kidney, except renal pelvis (principal); C78.00 Secondary malignant neoplasm of unspecified lung
CPT/HCPCS: 36415; 80053; 82533; 84439; 84443; 84478; 85025

== ENCOUNTER 2019-06-20 08:10 | Outpatient (CLI) | payer MEDICARE ==
[2019-06-20 08:24] LABS: BASOPHILS % (AUTO) 0.6 %; EOSINOPHILS # (AUTO) 0.4 10^3/uL (0.0-0.7); EOSINOPHILS % (AUTO) 6.7 %; HGB - HEMOGLOBIN 14.1 g/dL (14.0-18.0); LYMPHOCYTES # (AUTO) 1.3 10^3/uL (1.5-3.5); LYMPHOCYTES % (AUTO) 20.5 %; MEAN CORPUSCULAR HEMOGLOBIN 28.4 pg (27.0-31.0); MEAN CORPUSCULAR HGB CONC 31.5 g/dL (32.0-36.0); MEAN CORPUSCULAR VOLUME 90.1 fL (80.0-94.0); MEAN PLATELET VOLUME 9.9 fL (7.4-11.4); MONOCYTES # (AUTO) 0.6 10^3/uL (0.0-1.0); MONOCYTES % (AUTO) 9.6 %; NEUTROPHILS # (AUTO) 3.9 10^3/uL (1.5-6.6); NEUTROPHILS % (AUTO) 62.3 %; PLT - PLATELET COUNT 181 10^3/uL (130-450); RED BLOOD COUNT 4.97 10^6/uL (4.70-6.10); RED CELL DISTRIBUTION WIDTH 15.8 % (12.0-15.0); WHITE BLOOD COUNT 6.2 x10^3/uL (4.8-10.8)
[2019-06-20 08:45] LABS: ALBUMIN 4.2 g/dL (3.2-5.5); ALBUMIN/GLOBULIN RATIO 1.3 (1.0-2.2); BILIRUBIN,TOTAL 0.8 mg/dL (0.2-1.0); CALCIUM 9.2 mg/dL (8.5-10.3); CREATININE 1.7 mg/dL (0.6-1.2); TOTAL PROTEIN 7.5 g/dL (6.7-8.2)
[2019-06-20 09:01] LABS: THYROID STIMULATING HORMONE 4.2 uIU/mL (0.34-5.60)
[2019-06-20 09:03] LABS: FREE T4 (FREE THYROXINE) 0.98 ng/dL (0.58-1.64)
== END 2019-06-20 08:11 | disposition home or self-care (01) ==
LOC: LAB 08:10
PROVIDERS: ATTEND Internal Medicine Hematology & Oncology
DX: C64.1 Malignant neoplasm of right kidney, except renal pelvis (principal); C78.00 Secondary malignant neoplasm of unspecified lung
CPT/HCPCS: 36415; 80053; 82533; 84439; 84443; 84478; 85025

== ENCOUNTER 2019-07-21 08:24 | Outpatient (CLI) | payer MEDICARE ==
[2019-07-21 09:05] LABS: BASOPHILS % (AUTO) 0.7 %; EOSINOPHILS # (AUTO) 0.4 10^3/uL (0.0-0.7); EOSINOPHILS % (AUTO) 8.1 %; LYMPHOCYTES # (AUTO) 0.9 10^3/uL (1.5-3.5); LYMPHOCYTES % (AUTO) 16.4 %; MEAN CORPUSCULAR HEMOGLOBIN 27.5 pg (27.0-31.0); MEAN CORPUSCULAR HGB CONC 30.7 g/dL (32.0-36.0); MEAN CORPUSCULAR VOLUME 89.6 fL (80.0-94.0); MEAN PLATELET VOLUME 10.1 fL (7.4-11.4); MONOCYTES # (AUTO) 0.6 10^3/uL (0.0-1.0); MONOCYTES % (AUTO) 10.5 %; NEUTROPHILS # (AUTO) 3.5 10^3/uL (1.5-6.6); NEUTROPHILS % (AUTO) 64.1 %; PLT - PLATELET COUNT 167 10^3/uL (130-450); RED BLOOD COUNT 4.72 10^6/uL (4.70-6.10); RED CELL DISTRIBUTION WIDTH 15.8 % (12.0-15.0); WHITE BLOOD COUNT 5.4 x10^3/uL (4.8-10.8)
[2019-07-21 09:18] LABS: ALBUMIN 3.8 g/dL (3.2-5.5); ALBUMIN/GLOBULIN RATIO 1.2 (1.0-2.2); CREATININE 1.4 mg/dL (0.6-1.2)
[2019-07-21 09:33] LABS: THYROID STIMULATING HORMONE 4.02 uIU/mL (0.34-5.60)
[2019-07-21 09:35] LABS: FREE T4 (FREE THYROXINE) 1.17 ng/dL (0.58-1.64)
== END 2019-07-21 08:25 | disposition home or self-care (01) ==
LOC: LAB 08:24
PROVIDERS: ATTEND Internal Medicine Hematology & Oncology
DX: C64.1 Malignant neoplasm of right kidney, except renal pelvis (principal); C78.00 Secondary malignant neoplasm of unspecified lung
CPT/HCPCS: 36415; 80053; 82533; 84439; 84443; 84478; 85025

== ENCOUNTER 2019-08-19 08:19 | Outpatient (CLI) | payer MEDICARE ==
[2019-08-19 08:38] LABS: BASOPHILS % (AUTO) 0.4 %; EOSINOPHILS # (AUTO) 0.2 10^3/uL (0.0-0.7); EOSINOPHILS % (AUTO) 4.5 %; HGB - HEMOGLOBIN 13.5 g/dL (14.0-18.0); LYMPHOCYTES # (AUTO) 0.9 10^3/uL (1.5-3.5); LYMPHOCYTES % (AUTO) 17.6 %; MEAN CORPUSCULAR HEMOGLOBIN 28.5 pg (27.0-31.0); MEAN CORPUSCULAR HGB CONC 31.4 g/dL (32.0-36.0); MEAN CORPUSCULAR VOLUME 90.9 fL (80.0-94.0); MONOCYTES # (AUTO) 0.5 10^3/uL (0.0-1.0); MONOCYTES % (AUTO) 10.2 %; NEUTROPHILS # (AUTO) 3.6 10^3/uL (1.5-6.6); NEUTROPHILS % (AUTO) 67.1 %; PLT - PLATELET COUNT 158 10^3/uL (130-450); RED BLOOD COUNT 4.73 10^6/uL (4.70-6.10); RED CELL DISTRIBUTION WIDTH 15.3 % (12.0-15.0); WHITE BLOOD COUNT 5.3 x10^3/uL (4.8-10.8)
[2019-08-19 09:00] LABS: ALBUMIN/GLOBULIN RATIO 1.4 (1.0-2.2); BILIRUBIN,TOTAL 0.8 mg/dL (0.2-1.0); CALCIUM 8.8 mg/dL (8.5-10.3); CREATININE 1.4 mg/dL (0.6-1.2); TOTAL PROTEIN 6.8 g/dL (6.7-8.2)
[2019-08-19 09:12] LABS: CORTISOL 12.1 ug/dL
[2019-08-19 09:16] LABS: THYROID STIMULATING HORMONE 4.22 uIU/mL (0.34-5.60)
[2019-08-19 09:18] LABS: FREE T4 (FREE THYROXINE) 1.08 ng/dL (0.58-1.64)
== END 2019-08-19 08:20 | disposition home or self-care (01) ==
LOC: LAB 08:19
PROVIDERS: ATTEND Internal Medicine Hematology & Oncology
DX: C64.1 Malignant neoplasm of right kidney, except renal pelvis (principal); C78.00 Secondary malignant neoplasm of unspecified lung
CPT/HCPCS: 36415; 80053; 82533; 84439; 84443; 84478; 85025

== ENCOUNTER 2019-09-30 08:41 | Outpatient (CLI) | payer MEDICARE ==
[2019-09-30 08:54] LABS: BASOPHILS % (AUTO) 0.6 %; EOSINOPHILS # (AUTO) 0.2 10^3/uL (0.0-0.7); EOSINOPHILS % (AUTO) 3.5 %; HGB - HEMOGLOBIN 13.3 g/dL (14.0-18.0); LYMPHOCYTES % (AUTO) 19.2 %; MEAN CORPUSCULAR HEMOGLOBIN 28.2 pg (27.0-31.0); MEAN CORPUSCULAR HGB CONC 31.1 g/dL (32.0-36.0); MEAN CORPUSCULAR VOLUME 90.7 fL (80.0-94.0); MEAN PLATELET VOLUME 9.9 fL (7.4-11.4); MONOCYTES # (AUTO) 0.6 10^3/uL (0.0-1.0); MONOCYTES % (AUTO) 10.9 %; NEUTROPHILS # (AUTO) 3.4 10^3/uL (1.5-6.6); NEUTROPHILS % (AUTO) 65.4 %; PLT - PLATELET COUNT 143 10^3/uL (130-450); RED BLOOD COUNT 4.71 10^6/uL (4.70-6.10); RED CELL DISTRIBUTION WIDTH 15.4 % (12.0-15.0); WHITE BLOOD COUNT 5.2 x10^3/uL (4.8-10.8)
[2019-09-30 09:10] LABS: ALBUMIN/GLOBULIN RATIO 1.3 (1.0-2.2); BILIRUBIN,TOTAL 0.9 mg/dL (0.2-1.0); CALCIUM 9.3 mg/dL (8.5-10.3); CREATININE 1.4 mg/dL (0.6-1.2)
[2019-09-30 09:24] LABS: THYROID STIMULATING HORMONE 2.46 uIU/mL (0.34-5.60)
[2019-09-30 09:26] LABS: FREE T4 (FREE THYROXINE) 1.11 ng/dL (0.58-1.64)
== END 2019-09-30 08:42 | disposition home or self-care (01) ==
LOC: LAB 08:41
PROVIDERS: ATTEND Nurse Practitioner Adult Health
DX: C64.1 Malignant neoplasm of right kidney, except renal pelvis (principal); C61 Malignant neoplasm of prostate; C78.00 Secondary malignant neoplasm of unspecified lung
CPT/HCPCS: 36415; 80053; 82533; 84153; 84439; 84443; 84478; 85025

== ENCOUNTER 2019-10-28 08:50 | Outpatient (CLI) | payer MEDICARE ==
[2019-10-28 09:21] LABS: BASOPHILS % (AUTO) 0.4 %; EOSINOPHILS # (AUTO) 0.2 10^3/uL (0.0-0.7); EOSINOPHILS % (AUTO) 3.5 %; HGB - HEMOGLOBIN 13.6 g/dL (14.0-18.0); LYMPHOCYTES # (AUTO) 1.1 10^3/uL (1.5-3.5); LYMPHOCYTES % (AUTO) 22.2 %; MEAN CORPUSCULAR HEMOGLOBIN 28.2 pg (27.0-31.0); MEAN CORPUSCULAR HGB CONC 31.1 g/dL (32.0-36.0); MEAN CORPUSCULAR VOLUME 90.5 fL (80.0-94.0); MEAN PLATELET VOLUME 10.1 fL (7.4-11.4); MONOCYTES # (AUTO) 0.5 10^3/uL (0.0-1.0); MONOCYTES % (AUTO) 10.2 %; NEUTROPHILS # (AUTO) 3.1 10^3/uL (1.5-6.6); NEUTROPHILS % (AUTO) 63.5 %; PLT - PLATELET COUNT 148 10^3/uL (130-450); RED BLOOD COUNT 4.83 10^6/uL (4.70-6.10); RED CELL DISTRIBUTION WIDTH 15.5 % (12.0-15.0); WHITE BLOOD COUNT 4.9 x10^3/uL (4.8-10.8)
[2019-10-28 09:40] LABS: ALBUMIN/GLOBULIN RATIO 1.3 (1.0-2.2); BILIRUBIN,TOTAL 0.7 mg/dL (0.2-1.0); CALCIUM 9.2 mg/dL (8.5-10.3); CREATININE 1.5 mg/dL (0.6-1.2)
[2019-10-28 09:44] LABS: CORTISOL 12.9 ug/dL
[2019-10-28 09:48] LABS: THYROID STIMULATING HORMONE 3.57 uIU/mL (0.34-5.60)
[2019-10-28 09:50] LABS: FREE T4 (FREE THYROXINE) 1.06 ng/dL (0.58-1.64)
== END 2019-10-28 08:51 | disposition home or self-care (01) ==
LOC: LAB 08:50
PROVIDERS: ATTEND Internal Medicine Hematology & Oncology
DX: C64.1 Malignant neoplasm of right kidney, except renal pelvis (principal); C78.00 Secondary malignant neoplasm of unspecified lung
CPT/HCPCS: 36415; 80053; 82533; 84439; 84443; 84478; 85025

== ENCOUNTER 2019-11-27 08:21 | Outpatient (CLI) | payer MEDICARE ==
[2019-11-27 08:50] LABS: BASOPHILS % (AUTO) 0.5 %; EOSINOPHILS # (AUTO) 0.2 10^3/uL (0.0-0.7); EOSINOPHILS % (AUTO) 3.4 %; HGB - HEMOGLOBIN 13.7 g/dL (14.0-18.0); LYMPHOCYTES # (AUTO) 0.9 10^3/uL (1.5-3.5); LYMPHOCYTES % (AUTO) 15.2 %; MEAN CORPUSCULAR HEMOGLOBIN 28.3 pg (27.0-31.0); MEAN CORPUSCULAR HGB CONC 31.9 g/dL (32.0-36.0); MEAN CORPUSCULAR VOLUME 88.8 fL (80.0-94.0); MONOCYTES # (AUTO) 0.5 10^3/uL (0.0-1.0); MONOCYTES % (AUTO) 9.5 %; NEUTROPHILS % (AUTO) 71.2 %; PLT - PLATELET COUNT 149 10^3/uL (130-450); RED BLOOD COUNT 4.84 10^6/uL (4.70-6.10); RED CELL DISTRIBUTION WIDTH 15.5 % (12.0-15.0); WHITE BLOOD COUNT 5.6 x10^3/uL (4.8-10.8)
[2019-11-27 09:03] LABS: ALBUMIN 3.9 g/dL (3.2-5.5); ALBUMIN/GLOBULIN RATIO 1.3 (1.0-2.2); BILIRUBIN,TOTAL 0.7 mg/dL (0.2-1.0); CALCIUM 9.2 mg/dL (8.5-10.3); CREATININE 1.4 mg/dL (0.6-1.2); TOTAL PROTEIN 6.8 g/dL (6.7-8.2)
[2019-11-27 09:19] LABS: THYROID STIMULATING HORMONE 3.29 uIU/mL (0.34-5.60)
[2019-11-27 09:21] LABS: FREE T4 (FREE THYROXINE) 1.09 ng/dL (0.58-1.64)
== END 2019-11-27 08:22 | disposition home or self-care (01) ==
LOC: LAB 08:21
PROVIDERS: ATTEND Internal Medicine Hematology & Oncology
DX: C64.1 Malignant neoplasm of right kidney, except renal pelvis (principal); C78.00 Secondary malignant neoplasm of unspecified lung
CPT/HCPCS: 36415; 80053; 82533; 84439; 84443; 84478; 85025

== ENCOUNTER 2019-12-23 08:16 | Outpatient (CLI) | payer MEDICARE ==
[2019-12-23 08:32] LABS: BASOPHILS % (AUTO) 0.7 %; EOSINOPHILS # (AUTO) 0.2 10^3/uL (0.0-0.7); EOSINOPHILS % (AUTO) 3.5 %; HGB - HEMOGLOBIN 14.1 g/dL (14.0-18.0); MEAN CORPUSCULAR HEMOGLOBIN 28.5 pg (27.0-31.0); MEAN CORPUSCULAR HGB CONC 31.5 g/dL (32.0-36.0); MEAN CORPUSCULAR VOLUME 90.5 fL (80.0-94.0); MEAN PLATELET VOLUME 10.1 fL (7.4-11.4); MONOCYTES # (AUTO) 0.6 10^3/uL (0.0-1.0); NEUTROPHILS # (AUTO) 3.5 10^3/uL (1.5-6.6); NEUTROPHILS % (AUTO) 65.6 %; PLT - PLATELET COUNT 166 10^3/uL (130-450); RED BLOOD COUNT 4.95 10^6/uL (4.70-6.10); RED CELL DISTRIBUTION WIDTH 15.6 % (12.0-15.0); WHITE BLOOD COUNT 5.4 x10^3/uL (4.8-10.8)
[2019-12-23 08:49] LABS: ALBUMIN/GLOBULIN RATIO 1.4 (1.0-2.2); BILIRUBIN,TOTAL 0.7 mg/dL (0.2-1.0); CALCIUM 9.3 mg/dL (8.5-10.3); CREATININE 1.5 mg/dL (0.6-1.2); TOTAL PROTEIN 6.9 g/dL (6.7-8.2)
[2019-12-23 09:03] LABS: THYROID STIMULATING HORMONE 4.64 uIU/mL (0.34-5.60)
[2019-12-23 09:05] LABS: FREE T4 (FREE THYROXINE) 0.85 ng/dL (0.58-1.64)
== END 2019-12-23 08:17 | disposition home or self-care (01) ==
LOC: LAB 08:16
PROVIDERS: ATTEND Internal Medicine Hematology & Oncology
DX: C64.1 Malignant neoplasm of right kidney, except renal pelvis (principal); C78.00 Secondary malignant neoplasm of unspecified lung
CPT/HCPCS: 36415; 80053; 82533; 84439; 84443; 84478; 85025

== ENCOUNTER 2020-01-22 08:55 | Outpatient (CLI) | payer MEDICARE ==
[2020-01-22 09:09] LABS: BASOPHILS % (AUTO) 0.5 %; EOSINOPHILS # (AUTO) 0.2 10^3/uL (0.0-0.7); EOSINOPHILS % (AUTO) 4.1 %; HGB - HEMOGLOBIN 14.2 g/dL (14.0-18.0); LYMPHOCYTES # (AUTO) 1.2 10^3/uL (1.5-3.5); LYMPHOCYTES % (AUTO) 20.2 %; MEAN CORPUSCULAR HEMOGLOBIN 27.3 pg (27.0-31.0); MEAN CORPUSCULAR HGB CONC 30.7 g/dL (32.0-36.0); MEAN CORPUSCULAR VOLUME 88.9 fL (80.0-94.0); MEAN PLATELET VOLUME 10.5 fL (7.4-11.4); MONOCYTES # (AUTO) 0.6 10^3/uL (0.0-1.0); MONOCYTES % (AUTO) 9.4 %; NEUTROPHILS # (AUTO) 3.8 10^3/uL (1.5-6.6); NEUTROPHILS % (AUTO) 65.6 %; PLT - PLATELET COUNT 174 10^3/uL (130-450); RED BLOOD COUNT 5.21 10^6/uL (4.70-6.10); RED CELL DISTRIBUTION WIDTH 15.9 % (12.0-15.0); WHITE BLOOD COUNT 5.9 x10^3/uL (4.8-10.8)
[2020-01-22 09:36] LABS: CORTISOL 12.1 ug/dL
[2020-01-22 09:40] LABS: THYROID STIMULATING HORMONE 7.13 uIU/mL (0.34-5.60)
[2020-01-22 09:42] LABS: FREE T4 (FREE THYROXINE) 1.08 ng/dL (0.58-1.64)
[2020-01-22 09:46] LABS: ALBUMIN 4.2 g/dL (3.2-5.5); ALBUMIN/GLOBULIN RATIO 1.4 (1.0-2.2); BILIRUBIN,TOTAL 0.9 mg/dL (0.2-1.0); CALCIUM 9.5 mg/dL (8.5-10.3); CREATININE 1.5 mg/dL (0.6-1.2); TOTAL PROTEIN 7.3 g/dL (6.7-8.2)
== END 2020-01-22 08:56 | disposition home or self-care (01) ==
LOC: LAB 08:55
PROVIDERS: ATTEND Internal Medicine Hematology & Oncology
DX: C64.1 Malignant neoplasm of right kidney, except renal pelvis (principal); C78.00 Secondary malignant neoplasm of unspecified lung
CPT/HCPCS: 36415; 80053; 82533; 84439; 84443; 84478; 85025

== ENCOUNTER 2020-02-10 15:02 | Emergency (ER) | payer MEDICARE ==
[2020-02-10] MEDS ORDERED: MECLIZINE 12.5 MG TABLET PO STA (16:25)
[2020-02-10 16:45] LABS: ALBUMIN 4.1 g/dL (3.2-5.5); BILIRUBIN,TOTAL 0.5 mg/dL (0.2-1.0); CALCIUM 9.4 mg/dL (8.5-10.3); CREATININE 1.5 mg/dL (0.6-1.2); POTASSIUM 4.1 mmol/L (3.5-5.0); TOTAL PROTEIN 7.1 g/dL (6.7-8.2)
[2020-02-10 16:46] LABS: ALBUMIN/GLOBULIN RATIO 1.4 (1.0-2.2)
[2020-02-10 16:48] LABS: BASOPHILS % (AUTO) 0.7 %; EOSINOPHILS # (AUTO) 0.2 10^3/uL (0.0-0.7); HCT - HEMATOCRIT 44.3 % (42.0-52.0); HGB - HEMOGLOBIN 13.7 g/dL (14.0-18.0); LYMPHOCYTES # (AUTO) 0.8 10^3/uL (1.5-3.5); LYMPHOCYTES % (AUTO) 15.7 %; MEAN CORPUSCULAR HEMOGLOBIN 27.5 pg (27.0-31.0); MEAN CORPUSCULAR HGB CONC 30.9 g/dL (32.0-36.0); MEAN PLATELET VOLUME 10.8 fL (7.4-11.4); MONOCYTES # (AUTO) 0.5 10^3/uL (0.0-1.0); MONOCYTES % (AUTO) 8.4 %; NEUTROPHILS # (AUTO) 3.9 10^3/uL (1.5-6.6); NEUTROPHILS % (AUTO) 71.8 %; PLT - PLATELET COUNT 184 10^3/uL (130-450); RED BLOOD COUNT 4.98 10^6/uL (4.70-6.10); RED CELL DISTRIBUTION WIDTH 15.9 % (12.0-15.0); WHITE BLOOD COUNT 5.4 x10^3/uL (4.8-10.8)
--- NOTE | 2020-02-10 17:01 | ED Physician Documentation ---
History of Present Illness - Stated complaint Stated Complaint: DIZZY,ALVAREZ - Chief complaint Chief Complaint: Neuro - History obtained from History obtained from: Patient - History of Present Illness Timing: Today Pain level max: 0 Pain level now: 0 - Additonal information Additional information: 89-year-old male with a history of renal cell carcinoma who is currently on maintenance chemotherapy presents to the emergency department with feelings of vertigo and the room spinning intermittently for the past 4 to 5 days at home. Worse with turning his head to the right. He states he feels off balance when he walks. He states that it often occurs in the morning and then goes away as the day progresses. No vomiting. No headache. No fevers. No chills. No coughing. Review of Systems Ten Systems: 10 systems reviewed and negative Constitutional: denies: Fever, Chills Throat: denies: Sore throat Cardiac: denies: Chest pain / pressure Respiratory: denies: Cough GI: denies: Abdominal Pain, Nausea, Vomiting, Diarrhea : denies: Dysuria Skin: denies: Rash Musculoskeletal: denies: Neck pain, Back pain Neurologic: denies: Headache PD PAST MEDICAL HISTORY - Past Medical History Past Medical History: Yes Cardiovascular: Coronary artery disease, Other Respiratory: None, Other Neuro: None Endocrine/Autoimmune: None GI: Ulcers, Hiatal hernia, Colon polyps : Renal insuffiency, Other HEENT: Other Psych: Other Musculoskeletal: Other Derm: None - Past Surgical History Past Surgical History: Yes General: Appendectomy, Colonoscopy, EGD, Other Ortho: Spine surgery, 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 - Present Medications Home Medications: Ambulatory Orders Medication Instructions Recorded Confirmed Levothyroxine [Synthroid] 100 mcg PO QDAC 10/17/17 08/21/18 Lovastatin 10 mg PO DAILY 10/17/17 08/21/18 amLODIPine [Norvasc] 10 mg PO DAILY 10/17/17 08/21/18 hydrALAZINE [Apresoline] 50 mg PO DAILY 10/17/17 08/21/18 Ferrous Gluconate [Iron] 240 mg PO DAILY #30 tablet 02/19/18 08/21/18 Pantoprazole [Protonix] 40 mg PO BID #42 tablet 02/19/18 08/21/18 - Allergies Allergies/Adverse Reactions: Allergies Allergy/AdvReac Type Severity Reaction Status Date / Time No Known Drug Allergies Allergy Verified 02/10/20 15:19 - Social History Does the pt smoke?: No Smoking Status: Never smoker Does the pt drink ETOH?: No Does the pt have substance abuse?: No - Immunizations Immunizations are current?: Yes PD ED PE NORMAL - Vitals Vital signs reviewed: Yes - General General: Alert and oriented X 3, No acute distress, Well developed/nourished - HEENT HEENT: Atraumatic, PERRL, Ears normal, Moist mucous membranes, Pharynx benign - Neck Neck: Supple, no meningeal sign - Cardiac Cardiac: RRR, Strong equal pulses - Respiratory Respiratory: No respiratory distress, Clear bilaterally - Abdomen Abdomen: Soft, Non tender, Non distended - Derm Derm: Warm and dry, No rash - Extremities Extremities: No edema, No calf tenderness / cord - Neuro Neuro: Alert and oriented X 3, range aide 2-12 intact, No motor deficit, No sensory deficit, Normal speech, Other (Normal [id number]. + hallpike to the R) Eye Opening: Spontaneous Motor: Obeys Commands Verbal: Oriented GCS Score: 15 - Psych Psych: Normal mood, Normal affect Results - Vitals Vitals: Vital Signs - 24 hr 02/10/20 02/10/20 02/10/20 15:20 18:12 19:12 Temperature 36.2 C L 36.3 C L Heart Rate 56 L 63 70 Respiratory 18 19 20 Rate Blood Pressure 141/59 H 152/79 H 150/82 H O2 Saturation 100 98 99 Oxygen O2 Source Room air - EKG (time done) 1635 Rate: Rate (enter#) (55) Rhythm: NSR [place]: Anterior hemiblock (LAFB) Intervals: Normal CO, RBBB Ischemia: Normal ST segments - Labs Labs: Laboratory Tests 02/10/20 02/10/20 02/10/20 15:50 15:50 17:29 WBC 5.4 RBC 4.98 Hgb 13.7 L Hct 44.3 MCV 89.0 MCH 27.5 MCHC 30.9 L RDW 15.9 H Plt Count 184 MPV 10.8 Neut # (Auto) 3.9 Lymph # (Auto) 0.8 L Ogle # (Auto) 0.5 Eos # (Auto) 0.2 Baso # (Auto) 0.0 Absolute Nucleated RBC 0.00 Nucleated RBC % 0.0 Sodium 137 Potassium 4.1 Chloride 102 Carbon Dioxide 26 Anion Gap 9.0 BUN 17 Creatinine 1.5 H Estimated GFR (MDRD) 44 L Glucose 130 H Calcium 9.4 Total Bilirubin 0.5 AST 16 ALT 11 Alkaline Phosphatase 66 Total Protein 7.1 Albumin 4.1 Globulin 3.0 Albumin/Globulin Ratio 1.4 Urine Color YELLOW Urine Clarity CLEAR Urine pH 6.0 Ur Specific [place] <=1.005 Urine Protein NEGATIVE Urine Glucose (UA) NEGATIVE Urine Ketones NEGATIVE Urine Occult Blood NEGATIVE Urine Nitrite NEGATIVE Urine Bilirubin NEGATIVE Urine Urobilinogen 0.2 (NORMAL) Ur Leukocyte Esterase NEGATIVE Ur Microscopic Review NOT INDICATED Urine Culture Comments NOT INDICATED Nasal Adenovirus (PCR) Nasal B. parapertussis DNA (PCR) Nasal Coronavir 229E PCR Nasal Coronavir HKU1 PCR Nasal Coronavir NL63 PCR Nasal Coronavir OC43 PCR Nasal Enterovir/Rhinovir PCR Nasal Influenza B PCR Nasal Influenza A PCR Nasal Parainfluen 1 PCR Nasal Parainfluen 2 PCR Nasal Parainfluen 3 PCR Nasal Parainfluen 4 PCR Nasal RSV (PCR) Nasal B.pertussis DNA PCR Nasal C.pneumoniae (PCR) David Human Metapneumo PCR Nasal M.pneumoniae (PCR) Nasal SARS-CoV-2 (PCR) 02/10/20 18:35 WBC RBC Hgb Hct MCV MCH MCHC RDW Plt Count MPV Neut # (Auto) Lymph # (Auto) Ogle # (Auto) Eos # (Auto) Baso # (Auto) Absolute Nucleated RBC Nucleated RBC % Sodium Potassium Chloride Carbon Dioxide Anion Gap BUN Creatinine Estimated GFR (MDRD) Glucose Calcium Total Bilirubin AST ALT Alkaline Phosphatase Total Protein Albumin Globulin Albumin/Globulin Ratio Urine Color Urine Clarity Urine pH Ur Specific [place] Urine Protein Urine Glucose (UA) Urine Ketones Urine Occult Blood Urine Nitrite Urine Bilirubin Urine Urobilinogen Ur Leukocyte Esterase Ur Microscopic Review Urine Culture Comments Nasal Adenovirus (PCR) NOT DETECTED Nasal B. parapertussis DNA (PCR) NOT DETECTED Nasal Coronavir 229E PCR NOT DETECTED Nasal Coronavir HKU1 PCR NOT DETECTED Nasal Coronavir NL63 PCR NOT DETECTED Nasal Coronavir OC43 PCR NOT DETECTED Nasal Enterovir/Rhinovir PCR NOT DETECTED Nasal Influenza B PCR NOT DETECTED Nasal Influenza A PCR NOT DETECTED Nasal Parainfluen 1 PCR NOT DETECTED Nasal Parainfluen 2 PCR NOT DETECTED Nasal Parainfluen 3 PCR NOT DETECTED Nasal Parainfluen 4 PCR NOT DETECTED Nasal RSV (PCR) NOT DETECTED Nasal B.pertussis DNA PCR NOT DETECTED Nasal C.pneumoniae (PCR) NOT DETECTED David Human Metapneumo PCR NOT DETECTED Nasal M.pneumoniae (PCR) NOT DETECTED Nasal SARS-CoV-2 (PCR) NOT DETECTED - Rads (name of study) head CT Radiology: Final report received, EMP read contemporaneously, See rad report PD MEDICAL DECISION MAKING - ED course Complexity details: reviewed results, re-evaluated patient, considered differential, d/w patient, d/w family, 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 Symptoms resolved with meclizine. He is ambulating well in the emergency department. On head CT there is a large cystic mass in the left cerebellar hemisphere, concerning for malignancy. It is approximately 3 x 3.5 x 2.5 cm. Has mass-effect left to right at the posterior cranial fossa. [facility] was contacted at 1800 for transfer. Patient accepted to [facility] by Dr. Pfeiffer, room 205. Given decadron 10mg IV. GCS 15. D/w family as well. [employer] respiratory panel ordered to rapidly test specifically for COVID-19 in this patient who is expected to be hospitalized. CSF spaces: Basal cisterns are patent. No extra-axial fluid collections. Ventricles are normal in size and shape. Brain: No supratentorial midline shift but there is midline shift of the fourth ventricle level, with mild deviation of the midline structures rightward secondary to a large cystic mass, likely malignant in origin. No intracranial calcific masses or hemorrhage. Doherty-white matter interface is normal. The left cerebellar hemisphere mass measures up to 3.0 x 3.5 cm with craniocaudad extent of approximately 2.5 cm. Skull and face: Calvarium and visualized facial bones are intact, without suspicious lesions. Sinuses: Visualized sinuses and mastoids are clear. 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 The mass measures up to 3.0 x 3.5 x 2.5 cm, and produces early [id number] mass effect at the posterior cranial fossa. Follow-up by contrast- enhanced MR scanning appears warranted. Emergent neurosurgical consultation also likely appears warranted. MR scanning with contrast may detect additional lesions within the brain parenchyma. Departure - Departure Disposition: 02 Transfer Acute Care Hosp Clinical Impression: Mass, brain Condition: Good
--- NOTE | 2020-02-10 17:06 | CT Report ---
PROCEDURE: HEAD WO INDICATIONS: dizzy, headache TECHNIQUE: Noncontrast 4.5 mm thick angled axial sections acquired from the foramen magnum to the vertex. For r adiation dose reduction, the following was used: automated exposure control, adjustment of mA and/or kV according to patient size. COMPARISON: None. FINDINGS: Image quality: Excellent. CSF spaces: Basal cisterns are patent. No extra-axial fluid collections. Ventricles are normal in size and shape. Brain: No supratentorial midline shift but there is midline shift of the fourth ventricle level, wit h mild deviation of the midline structures rightward secondary to a large cystic mass, likely maligna nt in origin. No intracranial calcific masses or hemorrhage. Doherty-white matter interface is normal. The left cerebellar hemisphere mass measures up to 3.0 x 3.5 cm with craniocaudad extent of approxi mately 2.5 cm. Skull and face: Calvarium and visualized facial bones are intact, without suspicious lesions. Sinuses: Visualized sinuses and mastoids are clear. IMPRESSION: Large mass, cystic, with significant mass effect at the left cerebellar hemisphere, like ly malignant in origin. The mass measures up to 3.0 x 3.5 x 2.5 cm, and produces early [id number] mass effect at the posterior cranial fossa. Follow-up by contrast-enhanced MR scanning appears warran radha. Emergent neurosurgical consultation also likely appears warranted. MR scanning with contrast may detect additional lesions within the brain parenchyma. Reviewed by: Royce Coronado MD on 02/10/2020 5:05 PM [facility] Approved by: Royce Coronado MD on 02/10/2020 5:05 PM PST Station ID: [id number]
[2020-02-10 17:56] LABS: BILIRUBIN,URINE NEGATIVE (NEGATIVE); GLUCOSE, URINE (UA) NEGATIVE (NEGATIVE); KETONES,URINE (UA) NEGATIVE (NEGATIVE); LEUKOCYTE ESTERASE, URINE NEGATIVE (NEGATIVE); NITRITE,URINE NEGATIVE (NEGATIVE); OCCULT BLOOD,URINE NEGATIVE (NEGATIVE); PROTEIN,URINE NEGATIVE (NEGATIVE); UROBILINOGEN,URINE 0.2 (NORMAL) E.U./dL (NORMAL)
[2020-02-10 18:02] LABS: CLARITY,URINE CLEAR (CLEAR)
[2020-02-10] MEDS ORDERED: DEXAMETHASONE 10 MG/ML VIAL IVP STA (19:27)
[2020-02-10 20:05] LABS: B. PARAPERTUSSIS- RESP PCR PAN NOT DETECTED; B. PERTUSSIS- RESP PCR PANEL NOT DETECTED; C. PNEUMONIAE- RESP PCR PANEL NOT DETECTED; CORONAVIRUS 229E-RESP PCR NOT DETECTED; CORONAVIRUS HKU1-RESP PCR NOT DETECTED; CORONAVIRUS NL63-RESP PCR NOT DETECTED; CORONAVIRUS OC43-RESP PCR NOT DETECTED; HUMAN METAPNEUMOVIRUS NOT DETECTED; INFLUENZA A- RESP PCR PANEL NOT DETECTED; INFLUENZA B - RESP PCR PANEL NOT DETECTED; M. PNEUMONIAE- RESP PCR PANEL NOT DETECTED; PARAINFLUENZA VIRUS 1 NOT DETECTED; PARAINFLUENZA VIRUS 2 NOT DETECTED; PARAINFLUENZA VIRUS 3 NOT DETECTED; PARAINFLUENZA VIRUS 4 NOT DETECTED; RHINOVIRUS/ENTEROVIRUS NOT DETECTED; RSV- RESP PCR PANEL NOT DETECTED; SARS-CoV-2 -RESP PCR PANEL NOT DETECTED
[2020-02-10 21:28] VITALS: BP 114/79
== END 2020-02-10 22:25 | disposition short-term general hospital (02) ==
LOC: ED 15:02
DX: D43.1 Neoplasm of uncertain behavior of brain, infratentorial (principal); R42 Dizziness and giddiness; C64.9 Malignant neoplasm of unspecified kidney, except renal pelvis; I45.2 Bifascicular block; Z20.828 Contact with and (suspected) exposure to other viral communicable diseases
CPT/HCPCS: 36415; 70450; 80053; 81003; 85025; 87631; 93005; 96374; 99284; 99285; A9270; 0202U; 81001; 87086

== ENCOUNTER 2020-03-31 08:00 | Outpatient (CLI) | payer MEDICARE ==
[2020-03-31 16:12] LABS: CREATININE 1.2 mg/dL (0.6-1.2)
== END 2020-03-31 23:59 | disposition home or self-care (01) ==
LOC: LAB 08:00
PROVIDERS: ATTEND Radiology Radiation Oncology
DX: C79.31 Secondary malignant neoplasm of brain (principal)
CPT/HCPCS: 36415; 82565; 84520

== ENCOUNTER 2020-05-05 09:07 | Outpatient (CLI) | payer MEDICARE ==
[2020-05-05 09:32] LABS: CREATININE 1.4 mg/dL (0.6-1.2)
== END 2020-05-05 09:08 | disposition home or self-care (01) ==
LOC: LAB 09:07
PROVIDERS: ATTEND Radiology Radiation Oncology
DX: C79.31 Secondary malignant neoplasm of brain (principal)
CPT/HCPCS: 36415; 82565; 84520

== ENCOUNTER 2020-05-28 11:37 | Emergency (ER) | payer MEDICARE ==
[2020-05-28] MEDS ORDERED: SODIUM CHLORIDE 0.9% 1,000 ML IV STA (12:54)
--- NOTE | 2020-05-28 12:58 | ED Physician Documentation ---
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 He recently received his first COVID-19 vaccination on Sunday. He denies any chest pain abdominal pain vomiting or diarrhea. Denies urinary symptoms. Patient reports to me that he does not wish to be in the emergency department but is here because he was encouraged to do so by his stepson and [id number] at home. This gentleman was seen in this emergency department for vertigo in early January [address] of the head showed a large cystic mass he was ultimately transferred to [facility] in [place]. He did undergo a surgical operation for this and had been receiving radiation treatment. His last radiation treatment was approximately 2 to 3 weeks ago. This gentleman reports to me that he has decided to forego all chemotherapy infusions as well as radiation he no longer wants to pursue treatment for his cancer. He would like to change his CODE STATUS to DNR with selective treatment. Patient's power of film and video graphics designer includes his karynon Royce and his Kathia. This gentleman is . 1300: I did speak on the phone with the patient's power of film and video graphics designer Royce. He confirms that for the last 2 days patient has had fever up to 102 at home with increasing weakness and lethargy. He is concerned that this could be a vaccine reaction but with a gentleman's past medical history he wanted further evaluation. He also confirms with me that this gentleman is a DNR with selective treatment and he is aware and in agreement that the patient has decided to voluntarily stop radiation and chemotherapy. Review of Systems Constitutional: reports: Fever, Chills, Myalgias Eyes: reports: Reviewed and negative Ears: reports: Reviewed and negative Nose: reports: Reviewed and negative Throat: reports: Reviewed and negative Cardiac: denies: Chest pain / pressure, Palpitations Respiratory: reports: Cough. denies: Dyspnea, Hemoptysis, Wheezing GI: denies: Abdominal Pain, Abdominal Swelling, Nausea, Diarrhea : denies: Dysuria, Frequency, Hesitancy Skin: denies: Rash, Lesions Musculoskeletal: denies: Neck pain, Back pain Neurologic: reports: Generalized weakness. denies: Focal weakness, Numbness, Syncope, Confused, Headache, LOC PD PAST MEDICAL HISTORY - Past Medical History Past Medical History: Yes Cardiovascular: Coronary artery disease, Other Respiratory: None, Other Neuro: None Endocrine/Autoimmune: None GI: Ulcers, Hiatal hernia, Colon polyps : Renal insuffiency, Other HEENT: Other Psych: Other Musculoskeletal: Other Derm: None Other Past Medical History: Reports kidney, lung & brain cancer. 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 - Present Medications Home Medications: Ambulatory Orders Medication Instructions Recorded Confirmed Levothyroxine [Synthroid] 100 mcg PO QDAC 10/17/17 05/28/20 Lovastatin 10 mg PO DAILY 10/17/17 05/28/20 amLODIPine [Norvasc] 10 mg PO DAILY 10/17/17 05/28/20 hydrALAZINE [Apresoline] 50 mg PO DAILY 10/17/17 05/28/20 Ferrous Gluconate [Iron] 240 mg PO DAILY #30 tablet 02/19/18 05/28/20 Pantoprazole [Protonix] 40 mg PO BID #42 tablet 02/19/18 05/28/20 - Allergies Allergies/Adverse Reactions: Allergies Allergy/AdvReac Type Severity Reaction Status Date / Time No Known Drug Allergies Allergy Verified 05/28/20 11:42 - Social History Does the pt smoke?: No Smoking Status: Never smoker Does the pt drink ETOH?: No Does the pt have substance abuse?: No - Immunizations Immunizations are current?: Yes PD ED PE EXPANDED - General General: Alert, No acute distress, Well developed/nourished - HEENT HEENT: PERRL - Cardiac Cardiac: Regular Rate, Radial strong equal, Pedal strong equal, Cap refill < 2 sec - Respiratory Respiratory: Clear to ausultation [place]. No: Distress, Labored - Abdomen Abdomen: Normal Bowel sounds. No: Tender to palpation - Derm Derm: Normal color, Warm and dry - Neuro Neuro: Alert and Oriented X 3, CNII-XII intact - GCS Eye Opening: Spontaneous Motor: Obeys Commands Verbal: Oriented Total: 15 Results - Vitals Vitals: Vital Signs - 24 hr 05/28/20 05/28/20 05/28/20 11:44 13:46 15:18 Temperature 37.0 C 37 C Heart Rate 73 65 68 Respiratory 18 18 16 Rate Blood Pressure 114/34 L 120/52 L 130/63 O2 Saturation 100 93 96 Oxygen O2 Source Room air - Labs Labs: Laboratory Tests 05/28/20 05/28/20 05/28/20 12:56 12:56 12:56 WBC 5.2 RBC 4.08 L Hgb 11.1 L Hct 36.0 L MCV 88.2 MCH 27.2 MCHC 30.8 L RDW 15.9 H Plt Count 133 MPV 10.2 Neut # (Auto) 4.1 Lymph # (Auto) 0.5 L [place] # (Auto) 0.5 Eos # (Auto) 0.0 Baso # (Auto) 0.0 Absolute Nucleated RBC 0.00 Nucleated RBC % 0.0 Sodium 140 Potassium 3.9 Chloride 104 Carbon Dioxide 25 Anion Gap 11.0 BUN 23 H Creatinine 1.6 H Estimated GFR (MDRD) 41 L Glucose 116 H Lactic Acid 1.1 Calcium 9.5 Total Bilirubin 1.0 AST 22 ALT 12 Alkaline Phosphatase 61 Total Protein 6.4 L Albumin 3.5 Globulin 2.9 Albumin/Globulin Ratio 1.2 Lipase 22 Urine Color Urine Clarity Urine pH Ur Specific [place] Urine Protein Urine Glucose (UA) Urine Ketones Urine Occult Blood Urine Nitrite Urine Bilirubin Urine Urobilinogen Ur Leukocyte Esterase Ur Microscopic Review Urine Culture Comments 05/28/20 13:55 WBC RBC Hgb Hct MCV MCH MCHC RDW Plt Count MPV Neut # (Auto) Lymph # (Auto) [place] # (Auto) Eos # (Auto) Baso # (Auto) Absolute Nucleated RBC Nucleated RBC % Sodium Potassium Chloride Carbon Dioxide Anion Gap BUN Creatinine Estimated GFR (MDRD) Glucose Lactic Acid Calcium Total Bilirubin AST ALT Alkaline Phosphatase Total Protein Albumin Globulin Albumin/Globulin Ratio Lipase Urine Color DARK YELLOW Urine Clarity CLEAR Urine pH 5.5 Ur Specific [place] 1.020 Urine Protein TRACE Urine Glucose (UA) NEGATIVE Urine Ketones TRACE Urine Occult Blood NEGATIVE Urine Nitrite NEGATIVE Urine Bilirubin NEGATIVE Urine Urobilinogen 1 (NORMAL) Ur Leukocyte Esterase NEGATIVE Ur Microscopic Review NOT INDICATED Urine Culture Comments NOT INDICATED - Rads (name of study) Chest XR Radiology: Final report received (No acute cardiopulmonary pathology.) PD MEDICAL DECISION MAKING - ED course Complexity details: reviewed results, re-evaluated patient, d/w patient ED course: 89-year-old male with a history of metastatic renal cancer to his lung and brain presents the emergency department with 24 hours of weakness fever and chills. He did receive his COVID-19 vaccination 5 days ago. I did have lengthy discussion with the patient as well as his POA and son-in-law Royce who stated that the patient has voluntarily decided to stop radiation and further chemotherapy treatments and he is now a DNR however selective treatment can be instituted for conditions such as infection. On presentation however the patient appears fairly well. He has had no vital sign derangement here in the emergency department. We did do a chest x-ray which showed no acute focal opac ities or findings of pneumonia. He had a urine showing no signs of infection and screening labs were otherwise unremarkable sparing some minor dehydration which was repleted with 1 L crystalloid. I discussed the findings with the patient and he feels ready to be discharged home. No antibiotics will be administered as no source of infection is seen. The fever and generalized weakness may be related to the COVID-19 vaccination. I also discussed this with the patient's son-in-law Royce. Emergent return precautions were discussed. I will fill out a new POLST form indicating that this gentleman is a DNR with selective measures. Departure - Departure Disposition: 01 Home, Self Care Clinical Impression: Generalized weakness Fever Qualifiers: Fever type: unspecified Qualified Code(s): R50.9 - Fever, unspecified Condition: Stable Record reviewed to determine appropriate education?: Yes Comments: Og you were seen in the emergency department today for fever and generalized weakness. You did receive your COVID-19 vaccine on Sunday. Today we did do a chest x-ray that did not show pneumonia. We also did screening labs that showed no signs of infection. You were mildly dehydrated therefore we did give you 1 L of IV fluids. The fever and weakness may be related to the recent COVID-19 vaccination. However from this point you are stable to be discharged home if you feel that your symptoms are worsening please return immediately to the emergency department. Please ensure that you discuss discontinuing your cancer treatment with your solutions architect consultant and oncologist. You are free to return at any point for any worrisome symptoms.
[2020-05-28 13:06] LABS: BASOPHILS % (AUTO) 0.4 %; EOSINOPHILS % (AUTO) 0.4 %; HGB - HEMOGLOBIN 11.1 g/dL (14.0-18.0); LYMPHOCYTES # (AUTO) 0.5 10^3/uL (1.5-3.5); LYMPHOCYTES % (AUTO) 9.2 %; MEAN CORPUSCULAR HEMOGLOBIN 27.2 pg (27.0-31.0); MEAN CORPUSCULAR HGB CONC 30.8 g/dL (32.0-36.0); MEAN CORPUSCULAR VOLUME 88.2 fL (80.0-94.0); MEAN PLATELET VOLUME 10.2 fL (7.4-11.4); MONOCYTES # (AUTO) 0.5 10^3/uL (0.0-1.0); MONOCYTES % (AUTO) 10.2 %; NEUTROPHILS # (AUTO) 4.1 10^3/uL (1.5-6.6); NEUTROPHILS % (AUTO) 79.6 %; PLT - PLATELET COUNT 133 10^3/uL (130-450); RED BLOOD COUNT 4.08 10^6/uL (4.70-6.10); RED CELL DISTRIBUTION WIDTH 15.9 % (12.0-15.0); WHITE BLOOD COUNT 5.2 x10^3/uL (4.8-10.8)
[2020-05-28 13:19] LABS: ALBUMIN 3.5 g/dL (3.2-5.5); ALBUMIN/GLOBULIN RATIO 1.2 (1.0-2.2); CALCIUM 9.5 mg/dL (8.5-10.3); CREATININE 1.6 mg/dL (0.6-1.2); POTASSIUM 3.9 mmol/L (3.5-5.0); TOTAL PROTEIN 6.4 g/dL (6.7-8.2)
--- NOTE | 2020-05-28 13:30 | XRAY Report ---
PROCEDURE: Chest 1 View X-Ray INDICATIONS: chest pain TECHNIQUE: One view of the chest was acquired. COMPARISON: CT chest dated 10/25/2018 FINDINGS: Surgical changes and devices: None. Lungs and pleura: No pleural effusions or pneumothorax. Lungs are clear. Mediastinum: Aortic arch calcification is seen. Heart size is mildly enlarged. Bones and chest wall: No suspicious bony lesions. Overlying soft tissues appear unremarkable. IMPRESSION: No acute cardiopulmonary pathology. Reviewed by: Basim Castaneda MD on 05/28/2020 12:29 PM AKDT Approved by: Basim Castaneda MD on 05/28/2020 12:29 PM AKDT Station ID: [id number]
[2020-05-28 14:15] LABS: GLUCOSE, URINE (UA) NEGATIVE (NEGATIVE); KETONES,URINE (UA) TRACE mg/dL (NEGATIVE); LEUKOCYTE ESTERASE, URINE NEGATIVE (NEGATIVE); NITRITE,URINE NEGATIVE (NEGATIVE); OCCULT BLOOD,URINE NEGATIVE (NEGATIVE); PH,URINE 5.5 PH (5.0-7.5); PROTEIN,URINE TRACE mg/dL (NEGATIVE); UROBILINOGEN,URINE 1 (NORMAL) E.U./dL (NORMAL)
[2020-05-28 14:18] LABS: BILIRUBIN,URINE NEGATIVE (NEGATIVE); CLARITY,URINE CLEAR (CLEAR); ICTOTEST,URINE NEGATIVE
[2020-05-28 16:51] VITALS: BP 112/84
== END 2020-05-28 16:44 | disposition home or self-care (01) ==
LOC: ED 11:37
DX: R53.1 Weakness (principal); E86.0 Dehydration; R50.9 Fever, unspecified; R05 Cough; C64.9 Malignant neoplasm of unspecified kidney, except renal pelvis; C78.00 Secondary malignant neoplasm of unspecified lung; C79.31 Secondary malignant neoplasm of brain; Z66 Do not resuscitate
CPT/HCPCS: 36415; 80053; 81001; 81003; 83605; 83690; 85025; 87086; 99284